=== PATIENT | female | born 1945 | race Caucasian/White ===

== ENCOUNTER → 2023-06-30 16:17 | Outpatient (REF) | payer OTHER, SELFPAY | LOC: PAVMRI 16:17 | PROVIDERS: ATTENDING PHYSICIAN Psychiatry & Neurology Behavioral Neurology & Neuropsychiatry; PRIMARYCARE PHYSICIAN Internal Medicine | DX: G30.9 Alzheimer's disease, unspecified (principal) | CPT/HCPCS: 70551 ==

== ENCOUNTER 2024-06-12 14:02 | Inpatient (IN) | payer OTHER, SELFPAY ==
[2024-06-12] VITALS (9 sets, daily range): BP systolic 142–244; BP diastolic 55–78; BMI 28.7; BMI 28.9
--- NOTE | 2024-06-12 10:55 | EDRN ---
Ja BONILLA in to see pt.
[2024-06-12 11:08] LABS: % Basophils 0.4 % (0-2); % Eosinophils 1.3 % (0-6); % Immature Granulocytes 0.3 % (0-0.5); % Lymphocytes 5.6 % (20.5-51.1); % Monocytes 7.3 % (1.7-9.3); % Neutrophils 85.1 % (42.2-75.2); Absolute Eosinophils 0.1 10^3/uL (0-0.7); Absolute Lymphocytes 0.4 10^3/uL (1.2-3.4); Absolute Monocytes 0.6 10^3/uL (0.1-0.6); Absolute Neutrophils 6.4 10^3/uL (1.4-6.5); Hemoglobin 11.6 g/dL (12.0-16.0); Mean Corp Hgb Conc. 33.1 g/dL (33.0-37.0); Mean Corpuscular Hgb 32.1 pg (27.0-31.0); Mean Platelet Volume 9.6 fL (7.4-10.4); Nucleated Red Blood Cells % 0 %; Platelet Count 235 10^3/uL (130-400); Red Blood Cell Count 3.61 10^6/uL (4.20-5.40); White Blood Cell Count 7.5 10^3/uL (4.8-10.8)
--- NOTE | 2024-06-12 11:25 | EDRN ---
Pharmacist caled to send losartan 50 mg.
[2024-06-12 11:31] LABS: ALT (SGPT) 12 U/L (0-35); AST (SGOT) 21 U/L (14-36); Albumin 3.8 g/dl (3.5-5.0); Alkaline Phosphatase 109 U/L (38-126); Blood Urea Nitrogen 18 mg/dl (7-17); Calcium 9.2 mg/dl (8.4-10.2); Carbon Dioxide 26 mmol/L (22-30); Chloride 106 mmol/L (98-107); Glucose 118 mg/dl (70-99); Potassium 4.6 mmol/L (3.5-5.1); Sodium 137 mmol/L (135-145); Total Bilirubin 0.7 mg/dl (0.2-1.3); eGFR > 60.00
[2024-06-12 11:34] LABS: NT-proBNP 3100 pg/ml; Troponin I < 0.012 ng/ml
[2024-06-12] MEDS: COZAAR 50 MG PO (11:36)
[2024-06-12 11:55] LABS: COVID-19 Antigen Negative (Negative)
--- NOTE | 2024-06-12 12:33 | ED.GENMED ---
History of Present Illness
General
Chief Complaint: Breathing Problem
Source: patient
Exam Limitations: none
Time Seen by Provider: 06/12/24 10:29
Nursing documentation reviewed up to this point in time: agreed with
History of Present Illness
History of Present Illness:
pt is a 79 y/o F
h/o afib on eliquis, htn, hld
ex smoker
has had sob the past 3-4 days yojana when trying to lay down, worse at night, cannot lay flat
and feels weight gain (unknown pounds) and bloating
no edema in legs
she has had a cough
apparently had a cold but it seemed to get better and then worse more recently again
no known fever
has some mild pleuritic chest pain today too
no hemoptysis
has been compliant with eliquis, no missed doses except this am
didn't take bp meds this morning
Past History
Past History
ED Past Medical History: GERD (Merrill's)
ED Past Surgical History: Negative Appendectomy, Bowel resection, Cardiac or Cholecystectomy
Social History
Tobacco: Non-smoker
Alcohol: Occasional
Drug: None
Personal:
Living: with family
Employment: Retired
Family History
Family History: Other (Noncontributory)
Review of Systems
Review of Systems
Allergies reviewed?: Yes
All Other Systems: Not applicable
Phy Exam
Physical Exam
Physical Exam:
GENERAL: Alert , in no apparent distress mildly tachypneic
EYE: pupils equal and reactive
NECK: Supple
ENT: o/p clr, mmm.
CARDIAC: Regular rate and rhythm .
LUNGS: Diminished, no audible wheezes, maybe possible fine crackles, no cough
ABDOMEN: Soft, without focal tenderness, no r/g, no cvat, normal bowel sounds
NEUROLOGICAL: Alert and oriented, no focal neuro deficits
SKIN: Warm and dry, skin intact.
MUSCULOSKELETAL: No edema, well perfused. neg karyna's sign
PSYCH: Normal and appropriate interaction.
Scores
Heart Failure Risk
Heart Failure Risk Score: Yes
History of Stroke or TIA: No
History of intubation for respiratory distress: No
Heart rate on ED arrival >/= 110: No
SaO2 <90% on arrival on room air: No
HR >/=110 during 3min walk test (or too ill to perform test): No
ECG has acute ischemic changes: No
Urea >/=12mmol/L (BUN 33.6mg/dL): No
Serum CO2>/=35mmol/L: No
Troponin I or T elevated to RI Level (0.4mg/dL): No
NT-proBNP >/=5,000ng/L (5,000pg/ml): No
HF Risk Score: 0
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
Course
Orders/Labs/Results
Orders:
Orders
06/12/24 09:57
EKG [Electrocardiogram (*1)] Urgent
Reason for Study: Shortness of Breath
EKG- Treatment ONCE
06/12/24 10:40
Cardiac Monitoring- Treatment ONCE
IV Insert/Care/Rem.- Treatment PRN
06/12/24 10:57
Complete Blood Count/With Diff Urgent
Comprehensive Metabolic Panel Urgent
NT-proBNP Urgent
Troponin I Urgent
06/12/24 11:09
CR Chest - 2 Views Urgent
Comment:
Reason For Exam: cough, sob
06/12/24 11:20
COVID-19 Antigen Urgent
Source: Nasal Swab
Influenza A+B Rapid Molecular Urgent
AYO Source: Nasal Swab
Specimen Description:
06/12/24 11:26
Losartan [Cozaar] 50 mg PO NOW STA
06/12/24 12:05
Furosemide [Lasix] 40 mg IV NOW STA
06/12/24 12:12
Furosemide [Lasix] 20 mg IV ONCE ONE
06/12/24 12:13
CefTRIAXone [Rocephin] 2,000 mg IV NOW STA
Doxycycline [Vibramycin] 100 mg PO NOW STA
Abnormal Lab Results
06/12/24
10:57
RBC 3.61 L 10^6/uL
(4.20-5.40)
Hgb 11.6 L g/dL
(12.0-16.0)
Hct 35.0 L %
(37.0-47.0)
MCH 32.1 H pg
(27.0-31.0)
Absolute Lymphs (auto) 0.4 L 10^3/uL
(1.2-3.4)
Neutrophils % 85.1 H %
(42.2-75.2)
Lymphocytes % 5.6 L %
(20.5-51.1)
BUN 18 H mg/dl
(7-17)
Glucose 118 H mg/dl
(70-99)
Total Protein 6.0 L g/dl
(6.3-8.2)
06/12/24 10:57
06/12/24 10:57
Vital Signs
Initial and Last Documented VS:
Initial Vital Signs
Temp Pulse Resp Pulse Ox
36.7 C 63 18 93
06/12/24 09:56 06/12/24 09:56 06/12/24 09:56 06/12/24 09:56
Last Documented Vital Signs
Temp Pulse Resp BP Pulse Ox
36.7 C 65 21 176/68 92
06/12/24 09:56 06/12/24 12:07 06/12/24 12:07 06/12/24 12:07 06/12/24 11:37
MDM/Problems Addressed
Differential Diagnosis Includes:
CHF, pulmonary edema, pneumonia, COVID, flu, pleural effusion
MDM/Problems Addressed:
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
Here with several days of inability to lay flat due to shortness of breath, mild cough, low-grade temperature here of 99.1,
Mild chest discomfort with coughing and deep breathing. No missing doses of her Eliquis except this morning's. She has never had a PE. On exam the patient's pulse ox is 92% on room air and she looked a little tachypneic initially, she was mildly
anxious and hypertensive when I saw her but her initial blood pressure was much better and her blood pressure came down to 170/770. Patient's sounded diminished throughout and maybe had some fine crackles but no obvious wheezing. She has no
carried history of COPD. Presume this could be heart failure versus pneumonia given her recent illness/cough. Her chest x-ray was independently reviewed by me, I do note that she has got cardiomegaly which looks worse than previous but it does not
look like a significant pulmonary edema however her BNP is 3000 and we do not have an old one. Her troponin was negative and her EKG is nonischemic. The radiologist suspects she has pneumonia. Will give her Doxy and Rocephin given her flecainide
use. Admit to the hospital, 1 dose of Lasix as well.
*Critical Care Note
Total Time (30-74mins, 75-104mins- exclusive of procedures): Not Applicable
ED Attending Note
-
Portions of this chart may have been created with voice recognition software.� Occasional wrong word or��sound alike� substitutions may have occurred due to the inherent limitations of voice recognition software.
Discharge Plan
Departure
Patient Disposition: Admit
Date of Disposition: 06/12/24
Time of Disposition: 12:31
Admit to: Telemetry
Presentation/result/management discussed w/ accepting MD/DO: Hospitalist
Condition: Fair
Covid-19: Negative COVID-19
Discharge Problem:
Pneumonia, Cardiomegaly
Prescriptions:
No Action
escitalopram oxalate 20 MG tablet
20 mg PO DAILY
flecainide 50 mg Tablet
50 mg PO Q12H
losartan 50 mg Tablet
50 mg PO DAILY
sennosides [senna] 8.6 mg Tablet
8.6 mg PO HSPRN PRN (Reason: CONSTIPATION)
omeprazole 40 mg Capsule,Delayed Release(Dr/Ec)
40 mg PO DAILY
metoprolol succinate [Toprol XL] 25 mg Tablet Extended Release 24 Hr
25 mg PO DAILY
Eliquis 5 mg Tablet
5 mg PO BID
acetaminophen [Acetaminophen Extra Strength] 500 mg tablet
1,000 mg PO Q6HPRN PRN (Reason: MILD PAIN)
Referrals:
Khanh Ogden MD [Family Provider] -
Interventions
Interventions:
*Risk Screen - Suicide Last Done: 06/12/24 11:00
*General Assessment Last Done: 06/12/24 11:00
*Neglect/Abuse Screening Last Done: 06/12/24 11:00
*ED- Fall Risk Assessment Last Done: 06/12/24 11:00
*ED COVID-19 Vaccine History Last Done: 06/12/24 11:00
ED- Cardiac Assessment Last Done: 06/12/24 11:00
ED- Pulmonary Assessment Last Done: 06/12/24 11:00
Discharge Date and Time
Print Language: ARMENIAN
--- NOTE | 2024-06-12 12:54 | HPS.HSE ---
Addendum entered and electronically signed by Remington Shi MD 06/12/24 20:45:
I saw and examined the patient.
The STATE DIRECTOR or PA's note was reviewed and I agree with the note.
Comment:
79F afib Eliquis HTN HLD former smoker p/w progressive dyspnea orthopnea. Daughter notes intermittent progressive coughing with meals for the past month. CXR concerning for pna. Elevated BNP w/ hx progressive orthopnea concerning for heart
failure. BP elevated systolic 200s concerning for hypertensive urgency. Patient symptomatically improved with Lasix and continuation home Losartan. Admitted for further evaluation/treatment PNA and new onset heart failure.
Physical Exam
General: no acute distress appears comfortable at this time following lasix
HEENT: NormoCephalic, Moist mucous membranes and Atraumatic
Respiratory: Clear
Cardiac: S1/S2 and Regular Rhythm; No Murmur or Rub
GI: Soft, Non Tender, Non Distended and Normal Bowel Sounds; No Organomegaly
Musculoskeletal: No Clubbing, No Cyanosis and No Edema
Skin: No Rash
Neuro: AO x 3 conversant coherent
Psych: Calm
Pneumonia
CHF new onset
Hypertensive Urgency
Paroxysmal atrial fibrillation
Cont empiric ceftriaxone Doxycycline
Lasix diuresis
blood pressure control
Cont home Eliquis Fleicanide Metoprolol
Cardio eval
Follow up ECHO
ST/PT/OT eval
Original Note:
Family Physician
-
Family Physician: Khanh Ogden
Chief Complaint
-
sob
History of Present Illness
79 y/o F h/o afib on eliquis, htn, hld,ex smoker has had sob the past 3-4 days yojana when trying to lay down, worse at night, cannot lay flat. she had pleuritic chest pain since yesterday. she was complaining of right sided jaw and ear pain. denied
fever, chills. complained of CAN. denied abdominal pain,n,v,d. denied dysuria or hematuria. her legs are little swollen as per daughter. she had gained weights but not sure how much.
Chest x-ray with pneumonia, elevated BNP. Received Lasix, ceftriaxone and Doxy in ER. Admitting for further management
Medical History
Past Medical History
Past Medical History: Reports Other
Additional Past Medical History:
kidney stone
HTN
congenital malformation of intestinal fixation
GERD
Merrill esophagus
atrial fib
Past Surgical History: Reports Other
Additional Past Surgical History:
cataract surgery
kidney stone extraction
fallopian tube/oophorectomy
cervical fusion
Social History
Tobacco: Former Smoker
Alcohol: Daily
Drug: None
Living: With Family
Family History
Family History: Not pertinent
Allergies / Home Medications
Allergies reflects when Allergies were last updated in [employer].
Home Medications with original date entered in [employer]
Allergy/Medication List:
Allergies
Allergy/AdvReac Type Severity Reaction Status Date / Time
Nickel AdvReac ear Uncoded 09/25/22 08:19
irritation
Home Medications
escitalopram oxalate 20 mg tablet 20 mg PO DAILY 12/12/16
flecainide 50 mg tablet 50 mg PO Q12H 09/21/22
acetaminophen 500 mg tablet (Acetaminophen Extra Strength) 1,000 mg PO Q6HPRN PRN MILD PAIN 06/12/24
apixaban 5 mg tablet (Eliquis) 5 mg PO BID 06/12/24
losartan 50 mg tablet 50 mg PO DAILY 06/12/24
metoprolol succinate 25 mg tablet,extended release 24 hr (Toprol XL) 25 mg PO DAILY 06/12/24
omeprazole 40 mg capsule,delayed release 40 mg PO DAILY 06/12/24
sennosides 8.6 mg tablet (senna) 8.6 mg PO HSPRN PRN CONSTIPATION 06/12/24
Review of Systems
-
Constitutional: Reports Weight Gain
EENT: Reports No Symptoms
Respiratory: Reports Cough and Trouble Breathing
Cardiac: Reports No Symptoms
Abdomen/GI: Reports No Symptoms
: Reports No Symptoms
Musculoskeletal: Reports No Symptoms
Skin: Reports No Symptoms
Neurological: Reports Headache
Endocrine: Reports No Symptoms
Hematologic/Lymphatic: Reports No Symptoms
Psych: Reports No Symptoms
Physical Exam
Vital Signs
Vital Signs
Temp Pulse Resp BP Pulse Ox
98.1 F 65 21 176/68 92
06/12/24 09:56 06/12/24 12:07 06/12/24 12:07 06/12/24 12:07 06/12/24 11:37
Physical Exam
General: Well Developed, Well Nourished and No Apparent Distress
HEENT: NormoCephalic, Moist mucous membranes and Atraumatic
Respiratory: Clear
Cardiac: S1/S2 and Regular Rhythm; No Murmur or Rub
GI: Soft, Non Tender, Non Distended and Normal Bowel Sounds; No Organomegaly
Rectal: Deferred by Provider
Musculoskeletal: No Clubbing, No Cyanosis and No Edema
Skin: No Rash
Neuro: AO x 3 and Nonfocal/grossly intact
Psych: Calm
Laboratory Results
-
06/12/24 10:57
06/12/24 10:57
Laboratory Results
Total Bilirubin 0.7 mg/dl (0.2-1.3) 06/12/24 10:57
Total Bilirubin Cancelled 06/12/24 10:57
AST 21 U/L (14-36) 06/12/24 10:57
AST Cancelled 06/12/24 10:57
ALT 12 U/L (0-35) 06/12/24 10:57
ALT Cancelled 06/12/24 10:57
Alkaline Phosphatase 109 U/L (38-126) 06/12/24 10:57
Alkaline Phosphatase Cancelled 06/12/24 10:57
Troponin I < 0.012 ng/ml 06/12/24 10:57
Data Reviewed
-
Diagnostic Radiology: Report Reviewed by me
Lab Data: Labs Reviewed by me
Impression/Plan
-
#dyspnea multifactorial
-COVID-negative, flu negative
-Chest x-ray with impression of New findings suggesting right middle lobe and right lower lobe pneumonia. Mild. Clinical and laboratory correlation recommended.Tiny bilateral pleural effusions.Mild cardiomegaly. New
-Consider supplemental oxygen to keep sat greater than 92, wean as tolerated
#pneumonia
-Ceftriaxone and Doxy continued
-Tylenol as needed for fever and headache
#CHF new onset
-BNP 3100
-Lasix continued
-Strict ZEE
-Daily weight
-Fluid restriction
- Echo
-Cardiology consult
# Hypertension emergency
-Blood pressure was elevated on arrival
-Received a dose of losartan in the ER
-Blood pressure improving
-Losartan continued
-hydralzine iv added
# Anemia of chronic disease
-Hemoglobin stable at 11.6
-No active bleed
-Continue to monitor
#Cervical spondylosis with myelopathy
-hxt of discectomy
#Paroxysmal atrial fibrillation
-Eliquis continued
-Flecainide continued
-Metoprolol continued
# Depression/anxiety
-Escitalopram continued
# GERD
-PPI continued
# DVT prophylaxis
-Eliquis
# CODE STATUS
-Full code
[2024-06-12] MEDS: ROCEPHIN 2000 MG IV (13:00)
[2024-06-12] MEDS: LASIX 20 MG IV (13:00)
[2024-06-12] MEDS: VIBRAMYCIN 100 MG PO ×2 (13:00→20:08)
--- NOTE | 2024-06-12 13:00 | EDRN ---
Kee Padilla SALES OPERATIONS LEAD in room w/pt at this time. Purewyck placed as pt has difficulty getting up and out of bed to BR, also pt is to get lasix now.
[2024-06-12] MEDS: TYLENOL 650 MG PO (13:24)
--- NOTE | 2024-06-12 16:09 | CON.CAR ---
Addendum entered and electronically signed by Berkley Montemayor DO 06/12/24 18:13:
I saw and examined the patient.
The Outside Industrial Sales Representative's note was reviewed and I agree with the note.
Comment: Patient was seen and examined with daughter, Radha at bedside in room 418-2. Tiffany is a 79-year-old female with history of atrial fibrillation on Eliquis, hypertension, hyperlipidemia, former smoker, GERD, Merrill's esophagus, presents
with 3 to 4-day history of shortness of breath when lying flat, worse at night. Also with lower extremity edema. Also complains of pleuritic chest pain x 1 day, also c/o right-sided jaw and ear pain. Reports having shortness of breath like this
once before but does not recall when it was or if she was on a diuretic. She reports she had atrial fibrillation earlier this year and had a cardioversion in March 2024. She is scheduled for an ablation in July 2024 at [facility]. Patient's
primary rec therapist is Klever Merrill at [facility].
GEN: NAD, AAOx3, forgetful at times. RA
HEENT: supple, anicteric, mmm
LUNGS: CTA, no wheezes/rales
CV: Reg, S1/S2, 2/6 SM
ABD: soft, BS+, NT/ND
EXT: No edema.
Plan:
Acute heart failure, likely preserved ejection fraction, new daignosis
-Not on routine diuretics as an outpatient
-proBNP 3100
-Symptoms of orthopnea and shortness of breath have improved overnight with IV Lasix. Will continue IV Lasix and likely transition to oral Lasix at time of discharge
-cont outpt Losartan and Metoprolol succinate
-echo pending
-Consider adding additional GDMT, await echo result
-I/O and daily weights
-Troponin negative x 1
History of paroxysmal atrial fibrillation with plan for ablation at [facility] in July
-Currently in sinus rhythm with a EKG normal sinus rhythm and an otherwise normal EKG without ischemic changes
-Continue flecainide 50 mg every 12 in addition to metoprolol succinate 25 mg daily
-Monitor on telemetry
-Continue Eliquis anticoagulation
Records being requested from [facility]
Will follow with you
Original Note:
Consultation
Consultation Request
Date/Time Consultation Requested: 06/12/2024, 1459
Date/Time Consultation Performed: 06/12/2024, 1610
Requesting Provider: RHINA Avina
Performing Provider: RHINA Mane for Dr. Torres
Reason for Consultation: Heart failure
Medical History
-
Chief Complaint: Shortness of breath
History of Present Illness:
79-year-old female with history of atrial fibrillation on Eliquis, hypertension, hyperlipidemia, former smoker, GERD, Merrill's esophagus, presents with 3 to 4-day history of shortness of breath when lying flat, worse at night. Also with lower
extremity edema. Also complains of pleuritic chest pain x 1 day, also c/o right-sided jaw and ear pain. Reports having shortness of breath like this once before but does not recall when it was or if she was on a diuretic. She reports she had
atrial fibrillation earlier this year and had a cardioversion in March 2024. She is scheduled for an ablation in July 2024 at [facility]. Patient's primary rec therapist is Klever Merrill at [facility].
ED evaluation: proBNP 3100, troponin less than 0.012, COVID-negative, flu A and B negative
Chest x-ray right middle lobe and right lower lobe pneumonia, mild. Mild cardiomegaly, new, tiny bilateral pleural effusions.
EKG: Normal sinus rhythm, PACs
PMH:
paroxysmal atrial fibrillation, reports she has had for several years, has been on Eliquis for at least 2 years.
MV prolapse
Hypertension
Hyperlipidemia
Former smoker
GERD
Merrill's esophagus
Patient follows with Dr. Klever Merrill at [facility]
No known history of CAD, SD, CVA, TIA
Past Medical History
Past Surgical History: Other (Kidney stone extraction, cervical fusion, fallopian tube/oophorectomy, cervical fusion)
Social History
Tobacco: Former Smoker
Alcohol: Daily (2 glasses of wine daily)
Drug: None
Living: With Family
Allergies / Home Medications
Allergy/AdvReac Type Severity Reaction Status Date / Time
nickel Allergy ear Verified 06/12/24 14:58
irritation
�Medication �Instructions �Recorded �Confirmed �Type
escitalopram oxalate 20 mg tablet 20 mg PO DAILY 12/12/16 06/12/24 History
flecainide 50 mg tablet 50 mg PO Q12H 09/21/22 06/12/24 History
acetaminophen 500 mg tablet 1,000 mg PO Q6HPRN PRN MILD PAIN 06/12/24 06/12/24 History
(Acetaminophen Extra Strength)
apixaban 5 mg tablet (Eliquis) 5 mg PO BID 06/12/24 06/12/24 History
losartan 50 mg tablet 50 mg PO DAILY 06/12/24 06/12/24 History
metoprolol succinate 25 mg 25 mg PO DAILY 06/12/24 06/12/24 History
tablet,extended release 24 hr
(Toprol XL)
omeprazole 40 mg capsule,delayed 40 mg PO DAILY 06/12/24 06/12/24 History
release
sennosides 8.6 mg tablet (senna) 8.6 mg PO HSPRN PRN CONSTIPATION 06/12/24 06/12/24 History
Review of Systems
-
History Source: Patient
Constitutional: No Symptoms
Physical Exam
Vital Signs
Temp Pulse Resp BP Pulse Ox
98.1 F 68 20 171/72 93
06/12/24 09:56 06/12/24 14:34 06/12/24 14:38 06/12/24 14:34 06/12/24 14:38
Lab Results
06/12/24 10:57
06/12/24 10:57
Troponin I < 0.012 ng/ml 06/12/24 10:57
Veg-S-Mqjeyemmklt Pept 3100 pg/ml 06/12/24 10:57
GEN: No distress, awake, Ox3
HEENT: supple, anicteric, mmm
LUNGS: CTA, no wheezes/rales
CV: Reg, S1/S2, 1/6 syst LSB, and apex
ABD: soft, BS+, NT/ND
EXT: No edema
NEURO: Gross non-focal
SKIN: No rash
Impression / Plan
-
PCP: Khanh Perez MD
Primary rec therapist: Dr. Klever Merrill at [facility]
Impression:
Acute heart failure
Paroxysmal atrial fibrillation, on Eliquis
Hypertension
Hyperlipidemia
Former smoker
GERD
Cardiovascular testing:
EKG 06/12/2024: Normal sinus rhythm with PACs
Echo 06/12/2024 pending
Will obtain results from her primary rec therapist
Plan:
Acute heart failure with BNP 3100, new diagnosis
-Agree diuresis with IV Lasix
-cont outpt Losartan and Metoprolol succinate
-echo pending
-Consider adding additional GDMT, await echo result
-I/O and daily weights
-Troponin negative x 1
History of atrial fibrillation
-On flecainide 50 mg twice daily, Toprol 25 mg daily, and apixaban 5 mg twice daily
-EKG today: Normal sinus rhythm, 64 bpm, QRS 104 ms, QTc 466 ms
-Patient reportedly had a cardioversion in March 2024 and has ablation scheduled for July 2024 at [facility]
-If found to have LV dysfunction may need to switch antiarrhythmic from a 1C agent.
Pneumonia:
-Antibiotics per primary team
Data Reviewed
-
EKG: Tracing Personally Visualized and interpreted
Labs: Labs Reviewed by me
[2024-06-12] MEDS: TAMBOCOR 50 MG PO (18:03)
[2024-06-12] MEDS: ELIQUIS 5 MG PO (20:08)
[2024-06-12] MEDS: MUCINEX 600 MG PO (20:08)
[2024-06-13] VITALS (8 sets, daily range): BP systolic 131–170; BP diastolic 74–101; PULSE 116–117; O2SAT 96; BMI 28.3
--- NOTE | 2024-06-13 03:44 | PTCARENOTE ---
Pt denied pain and resp distress. No s/s of distress assessed. Will continue to monitor.
[2024-06-13] MEDS: TAMBOCOR 50 MG PO (05:18)
[2024-06-13] MEDS: APRESOLINE 5 MG IV (05:44)
--- NOTE | 2024-06-13 07:29 | W.PN.HOSP.TC ---
Today's Communication/Plan
-
ST/PT/OT
cont diuresis as per Cardio
GI eval
blood pressure control
aspiration precautions
cont abx
Assessment / Plan
Assessment / Plan
Physical Exam
General: no acute distress appears comfortable at this time
HEENT: NormoCephalic, Moist mucous membranes and Atraumatic
Respiratory: Clear stable respiratory status on room air
Cardiac: S1/S2 and Regular Rhythm; No Murmur or Rub
GI: Soft, Non Tender, Non Distended and Normal Bowel Sounds; No Organomegaly
Musculoskeletal: No Clubbing, No Cyanosis and No Edema
Skin: No Rash
Neuro: AO x 3 conversant coherent
Psych: Calm
79F afib Eliquis HTN HLD former smoker p/w progressive dyspnea orthopnea. Daughter notes intermittent progressive coughing with meals for the past month. CXR concerning for pna. Elevated BNP w/ hx progressive orthopnea concerning for heart
failure. BP elevated systolic 200s concerning for hypertensive urgency. Patient symptomatically improved with Lasix and continuation home Losartan. Admitted for further evaluation/treatment PNA and new onset heart failure
#dyspnea multifactorial
-COVID-negative, flu negative
-Chest x-ray suggestive right middle lobe and right lower lobe pneumonia. Mild cardiomegaly
#pneumonia
-Ceftriaxone and Doxy continued
-Tylenol as needed for fever and headache
#Acute HFpEF
-BNP 3100
-Lasix continued
-daily weight I/O
- Echo appreciated EF 55-60%
-Cardiology consult appreciated cont IV lasix diuresis
# Hypertension urgency
-Blood pressure was elevated on arrival
-since improved following restart home antihypertensive
-Losartan Metoprolol continued
-hydralzine iv prn
-cont diuresis as per cardio
# Anemia of chronic disease
-H&H stable
#Cervical spondylosis with myelopathy
-hxt of discectomy
#Paroxysmal atrial fibrillation
-Eliquis Metoprolol continued
-Flecainide discontinued as per cardio, contraindicated d/t HF, started on Amiodarone
-Cardio eval appreciated planned for Cardioversion
# Depression/anxiety
-Escitalopram continued
# GERD
#Esophageal dysphagia as noted on VSE
-PPI continued
-GI eval appreciated planned for Barium esophagram
PT/OT appreciated home health
# DVT prophylaxis
-Eliquis
# CODE STATUS
-Full code
I spent a total of 50 minutes with the patient or on the floor. More than 50% of this time involved counseling and coordination of care.
Anticipated Discharge: > 48 hours
Subjective/Interval History
-
Date of Service: June 13, 2024
episode coughing vomiting with meal this morning. otherwise stable respiratory status on room air. Reports persistent dysphagia, general malaise.
Objective Data
-
Labs:
Laboratory Results
06/13/24
06:42
WBC Pending
Hgb Pending
Hct Pending
Plt Count Pending
Sodium Pending
Potassium Pending
Chloride Pending
Carbon Dioxide Pending
BUN Pending
Creatinine Pending
Glucose Pending
Calcium Pending
Vital Signs:
Vital Signs
Temp Pulse Resp BP Pulse Ox
98.4 F 113 18 197/111 91
06/13/24 03:44 06/13/24 05:44 06/13/24 03:44 06/13/24 05:44 06/13/24 03:44
I&O
06/12/24 06/13/24 06/14/24
06:59 06:59 06:59
Intake Total 620 / 620
Output Total 500 / 500
Balance 120 / 120
[2024-06-13 07:37] LABS: Hematocrit 35.8 % (37.0-47.0); Hemoglobin 12.2 g/dL (12.0-16.0); Mean Corp Hgb Conc. 34.1 g/dL (33.0-37.0); Mean Platelet Volume 9.9 fL (7.4-10.4); Platelet Count 246 10^3/uL (130-400); Red Blood Cell Count 3.81 10^6/uL (4.20-5.40); Red Cell Dist. Width 13.8 % (11.5-14.5); White Blood Cell Count 9.5 10^3/uL (4.8-10.8)
[2024-06-13] MEDS: TYLENOL 650 MG PO (08:03)
[2024-06-13] MEDS: LASIX 40 MG IV (08:03)
[2024-06-13] MEDS: VIBRAMYCIN 100 MG PO ×2 (08:04→20:20)
[2024-06-13] MEDS: MUCINEX 600 MG PO ×2 (08:04→20:20)
[2024-06-13] MEDS: TOPROL XL 25 MG PO ×3 (08:04→20:20)
[2024-06-13] MEDS: PROTONIX 40 MG PO (08:04)
[2024-06-13] MEDS: LEXAPRO 20 MG PO (08:04)
[2024-06-13] MEDS: COZAAR 50 MG PO (08:04)
[2024-06-13 08:05] LABS: Blood Urea Nitrogen 15 mg/dl (7-17); Calcium 9.8 mg/dl (8.4-10.2); Carbon Dioxide 25 mmol/L (22-30); Chloride 101 mmol/L (98-107); Estimated Creatinine Clearance 49 ml/min; Glucose 119 mg/dl (70-99); HDL Cholesterol 109 mg/dl; LDL Cholesterol, Calculated 80 mg/dl; Magnesium 1.6 mg/dl (1.6-2.3); Phosphorus 3.3 mg/dl (2.5-4.5); Potassium 3.9 mmol/L (3.5-5.1); Sodium 134 mmol/L (135-145); Total Cholesterol 205 mg/dl (50-199); Triglyceride 82 mg/dl (10-149); Very Low Density Lipoprotein 16 mg/dl (0-30); eGFR > 60.00
[2024-06-13] MEDS: ELIQUIS 5 MG PO ×2 (08:05→20:20)
[2024-06-13 08:27] LABS: TSH Reflex To Free T4 1.59 uIU/ml (0.47-4.68)
--- NOTE | 2024-06-13 09:23 | PTOTSP ---
Dysphagia Evaluation
Patient with signs concerning for pharyngoesophageal dysphagia and with acute on chronic risk factors (i.e., acute CHF exacerbation with PNA; GERD, Merrill's esophagus, hiatal hernia, hx of ACDF).
Patient with emesis after solids during this evaluation. Physician notified.
Per discussion with physician:
1. Single sips of thin liquids
2. Medications as best tolerated
3. Video swallow study to further assess oral/pharyngeal swallow and develop tx plan
4. Consider GI consult pending results of video swallow
--- NOTE | 2024-06-13 12:08 | W.PN.CARDCBS ---
Addendum entered and electronically signed by Jason Jurado MD 06/13/24 17:55:
In a.m., can consider SGLT2 antagonist and spironolactone
Addendum entered and electronically signed by Jason Jurado MD 06/13/24 16:39:
79-year-old woman with PAF scheduled for ablation, admitted here with 3 to 4 days of shortness of breath with A-fib, found to have HFpEF with proBNP of 3100. Currently on flecainide. Being treated empirically for pneumonia
PMH: Mitral valve prolapse, hypertension, paroxysmal A-fib, hyperlipidemia, former smoker, GERD/Merrill's PSH: Calculi, cervical fusion, BSO outpatient meds: Apixaban, Lexapro, flecainide 50 p.o. every 12, losartan 50 mg twice daily, metoprolol ER
25 a day, omeprazole 40 mg a day, etc.
Current meds: Apixaban, Lexapro 20 mg a day, flecainide 50 mg every 12, losartan 50 mg daily, metoprolol ER 25 mg daily, pantoprazole 40 mg a day, furosemide 40 mg IV daily, Mucinex, ceftriaxone, doxycycline
155/86, pulse 106, respiratory 20, afebrile weight is 73.5 kg if accurate down 5 kg from admission
Echo 06/12/2024: EF 55-60%, mild LVH, moderate MR, normal RV, mild TR, pulmonary artery pressure 47, normal RV, trace aortic regurgitation
White count is 9.5, hemoglobin is 12.2, BUN and creatinine are 15 and 0.9, Troponin undetectable, proBNP 3100
Impression:
Paroxysmal/persistent atrial fibrillation on flecainide, scheduled for PVI at [facility] in July
Acute/subacute HFpEF
Possible pneumonia
Hypertension
Hypercholesterolemia
Former smoker
GERD
Plan:
Continue IV Lasix possibly transition to oral in a.m.
DC flecainide, which is now contraindicated related to new onset heart failure
Agree with increase in metoprolol, ventricular response is still rapid
Discussed with patient's primary wireless operator, Dr. Merrill, we are agreed that short-term addition of amiodarone with cardioversion pending PVI is reasonable, start amiodarone in a.m.
Blood pressure is now fairly reasonably controlled
Original Note:
Today's Communication / Plan
-
Increase Toprol
Schedule for cardioversion tomorrow
Impression / Plan
-
PCP: Khanh Perez MD
Primary wireless operator: Dr. Klever Merrill at [facility]
Impression:
Acute heart failure
Paroxysmal atrial fibrillation, on Eliquis, Flecainide, toprol
Hypertension
Hyperlipidemia
Former smoker
GERD
Cardiovascular testing:
EKG 06/12/2024: Normal sinus rhythm with PACs
Echo 06/12/2024: normal LV size, EF 55 to 60%, stage III diastolic dysfunction, moderate MR, mild TR, PAP 47 mmHg
Plan:
1.Acute heart failure with BNP 3100, new diagnosis
-Agree diuresis with IV Lasix, weight down 3 pounds overnight
-cont outpt Losartan and Metoprolol succinate
-echo 06/12/2024, EF 55-60%
-Consider adding additional GDMT
-I/O and daily weights
-Troponin negative x 1
2. History of atrial fibrillation
-On flecainide 50 mg twice daily, Toprol 25 mg daily, and apixaban 5 mg twice daily
-Was in normal sinus rhythm on presentation, went into atrial fibrillation with RVR overnight around 3 AM. Patient currently denies palpitations, lightheadedness
-Repeat twelve-lead EKG today
-Will increase Toprol to 50 mg daily with extra 25 mg now.
-Has been on uninterrupted Eliquis.
-Will schedule for cardioversion tomorrow
-Patient is scheduled for ablation in July 2024 at [facility] through her primary wireless operator. Still attempting to obtain records.
-Patient reportedly had a cardioversion in March 2024 and has ablation scheduled for July 2024 at [facility]
-Consider switching antiarrhythmic from a 1C agent given heart failure preserved EF. Will need to review this with primary wireless operator.
Pneumonia:
-Antibiotics per primary team
Progress Note - Automation Consultant
Subjective
Date of Service: June 13, 2024
Went into A-fib overnight, HRs to 120s
-denies palps, LH, SOB, CP
Objective
Labs:
06/13/24 06:42
06/13/24 06:42
Labs
Hgb 12.2 g/dL (12.0-16.0) 06/13/24 06:42
Hct 35.8 % (37.0-47.0) L 06/13/24 06:42
Plt Count 246 10^3/uL (130-400) 06/13/24 06:42
Sodium 134 mmol/L (135-145) L 06/13/24 06:42
Potassium 3.9 mmol/L (3.5-5.1) 06/13/24 06:42
BUN 15 mg/dl (7-17) 06/13/24 06:42
Creatinine 0.9 mg/dL (0.6-1.0) 06/13/24 06:42
Glucose 119 mg/dl (70-99) H 06/13/24 06:42
Troponins
06/12/24
10:57
Troponin I < 0.012
Vital Signs and I&O:
Vital Signs
Temp Pulse Resp BP Pulse Ox
97.9 F 106 20 155/86 94
06/13/24 10:51 06/13/24 10:51 06/13/24 10:51 06/13/24 10:51 06/13/24 10:51
Vital Signs
Temp Pulse Resp BP Pulse Ox
97.9 F 106 20 155/86 94
06/13/24 10:51 06/13/24 10:51 06/13/24 10:51 06/13/24 10:51 06/13/24 10:51
Intake & Output
06/11/24 06/12/24 06/13/24 06/14/24
06:59 06:59 06:59 06:59
Intake Total 620 / 620
Output Total 500 / 500
Balance 120 / 120
Physical Exam
Physical Exam
GEN: No distress, awake, Ox3
HEENT: supple, anicteric, mmm
LUNGS: CTA, no wheezes/rales
CV: tachy, irreg, irreg no murmur
ABD: soft, BS+, NT/ND
EXT: No edema
NEURO: Gross non-focal
SKIN: No rash
[2024-06-13] MEDS: STERILE WATER FOR INJECTION 10 ML IV (13:03)
[2024-06-13] MEDS: ROCEPHIN 1000 MG IV (13:05)
--- NOTE | 2024-06-13 14:42 | CON.GI ---
Addendum entered and electronically signed by Klever Joyce MD 06/13/24 17:33:
Patient seen and examined, agree with nurse practitioner note. Patient is a 79-year-old female with complex past medical history as noted including A-fib on Eliquis, Laboy's, admitted with cough and shortness of breath, found to have new acute
heart failure with BNP of 3100 and possible pneumonia. She underwent modified barium swallow today with concern for esophageal retention and retrograde flow. She states that since her cervical spine surgery she has been having some trouble with
dysphagia, mostly initiating a swallow. 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 She does have some regurgitation at times, though does know which dietary changes
to help with her symptoms. She denies any fever, chills, melena. On exam she has no abdominal tenderness.
1. Pneumonia: Possibly related to aspiration, though her symptoms seem to be more from proximal esophagus after her C-spine surgery. At this point will await barium esophagram to further define esophageal anatomy. Will hold on endoscopy for now
pending esophagram results, and discussed continued dietary modifications.
Original Note:
Consultation
-
Date/Time Consultation Requested: 06/13/24 1430
Date/Time Consultation Performed: 06/13/24 1445
Requesting Provider: Jony Shi MD
Performing Provider: RHINA Cesar, Yomi Joyce MD
Reason for Consultation: concern for aspiration
Medical History
Chief Complaint / HPI
Chief Complaint: dysphagia with PNA
History of Present Illness:
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
hypothyroidism, cervical surgery x 2 summer 2023, hx ulcerative colitis on prior colonoscopy bx with short period of mesalamine use, former tobacco use with admission with noted cough for last few months with eating and noted with shortness of
breath. On admission concern for new acute heart failure with BNP 3100 with new diagnosis.There was also concern for PNA. She completed VSE today with concern for esophageal dysphagia with retrograde flow and retention in esophagus with esophageal
sweep which did not clear with wash . Asked to see for concern for aspiration from esophageal issue.
In further review with patient she had 2 cervical surgeries last summer. After completed she began with difficulty swallowing with liquid and solids. She had feeling of food sticking in upper esophagus then regurgitation and some time vomiting
of stomach contents. She has chronic GERD with hx laboy's on Omeprazole daily. She also complaints of some pinpoint epigastric pain over lower sternum that is reproducible with palpation. She denies issues with odynophagia, diarrhea,
constipation or rectal bleeding. Last EGD on records with Dr. Felix, - mucosa suggest of laboy's, polyps in stomach, , Erythema c/w gastritis, bx not reviewed. repeat 3 year. Pt unsure if repeated since that time.
Past Medical History
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
colonoscopy in past, laboy's, tortuous colon with hx , hx ulcerative colitis on prior colon biopsy with prior mesalamine use , enlarged gastric fold with follow up EUS no mass seen )
Past Surgical History: Cardiac (cardioversion), Orthopedic (cervical fusion ) and Other (cataract surgery with lens placed, fallopian tube with oopherectomy)
Social History
Tobacco: Former Smoker
Alcohol: Occasional
Drug: None
Living: Alone
Employment: Retired
Family History
Family History: Other (no family hx colon CA or polyps, mother with empysema)
Allergies / Home Medications
Allergy/AdvReac Type Severity Reaction Status Date / Time
nickel Allergy ear Verified 06/12/24 14:58
irritation
�Medication �Instructions �Recorded
escitalopram oxalate 20 mg tablet 20 mg PO DAILY Depression 12/12/16
flecainide 50 mg tablet 50 mg PO Q12H Arrhythmia 09/21/22
acetaminophen 500 mg tablet 1,000 mg PO Q6HPRN PRN MILD PAIN 06/12/24
(Acetaminophen Extra Strength)
apixaban 5 mg tablet (Eliquis) 5 mg PO BID Blood Clot 06/12/24
Prevention/Tx
losartan 50 mg tablet 50 mg PO DAILY Blood Pressure 06/12/24
metoprolol succinate 25 mg 25 mg PO DAILY Blood Pressure 06/12/24
tablet,extended release 24 hr
(Toprol XL)
omeprazole 40 mg capsule,delayed 40 mg PO DAILY Gastrointestinal 06/12/24
release Issue
sennosides 8.6 mg tablet (senna) 8.6 mg PO HSPRN PRN CONSTIPATION 06/12/24
Review of Systems
-
History Source: Patient
Constitutional: Reports No Symptoms
EENT: Reports Other (dysphagia )
Respiratory: Reports Cough and Trouble Breathing (with chest tightness on admission)
Cardiac: Reports Chest Pain (on admission)
Abdomen/GI: Reports Abdominal Pain (epigastric pain ), Nausea and Vomiting
: Reports No Symptoms
Musculoskeletal: Reports Joint Pain and Other (neck/shoulder pain)
Neurological: Reports Dizzy and Weakness
Endocrine: Reports No Symptoms
Hematologic/Lymphatic: Reports No Symptoms
Vital Signs
Temp Pulse Resp BP Pulse Ox
97.9 F 106 20 155/86 94
06/13/24 10:51 06/13/24 10:51 06/13/24 10:51 06/13/24 10:51 06/13/24 10:51
Physical Exam
Exam
General: Well Developed, Well Nourished and No Apparent Distress
HEENT: Normocephalic and Anicteric
Respiratory: Clear
Cardiac: Regular Rhythm
GI: Soft, Non Tender and Non Distended
Musculoskeletal: No Clubbing and No Cyanosis
Skin: Warm and Dry
Neuro: Awake, Alert, AO x 3 and Other (forgetful at times to some history )
Psych: Calm
Results
WBC 9.5 10^3/uL (4.8-10.8) 06/13/24 06:42
Hgb 12.2 g/dL (12.0-16.0) 06/13/24 06:42
Hct 35.8 % (37.0-47.0) L 06/13/24 06:42
MCV 94.0 fL (81.0-99.0) 06/13/24 06:42
Plt Count 246 10^3/uL (130-400) 06/13/24 06:42
Absolute Neuts (auto) 6.4 10^3/uL (1.4-6.5) 06/12/24 10:57
Sodium 134 mmol/L (135-145) L 06/13/24 06:42
Potassium 3.9 mmol/L (3.5-5.1) 06/13/24 06:42
Chloride 101 mmol/L (98-107) 06/13/24 06:42
Carbon Dioxide 25 mmol/L (22-30) 06/13/24 06:42
BUN 15 mg/dl (7-17) 06/13/24 06:42
Creatinine 0.9 mg/dL (0.6-1.0) 06/13/24 06:42
Calcium 9.8 mg/dl (8.4-10.2) 06/13/24 06:42
Total Bilirubin 0.7 mg/dl (0.2-1.3) 06/12/24 10:57
Total Bilirubin Cancelled 06/12/24 10:57
AST 21 U/L (14-36) 06/12/24 10:57
AST Cancelled 06/12/24 10:57
ALT 12 U/L (0-35) 06/12/24 10:57
ALT Cancelled 06/12/24 10:57
Alkaline Phosphatase 109 U/L (38-126) 06/12/24 10:57
Alkaline Phosphatase Cancelled 06/12/24 10:57
Diagnostic Image Results:
06/12/24 CXR -
New findings suggesting right middle lobe and right lower lobe pneumonia. Mild. Clinical and laboratory correlation recommended.
Tiny bilateral pleural effusions.
Mild cardiomegaly. New
Prior GI Procedures:
�������colonoscopy was attempted in 2012. Procedure was aborted. She then had a virtual colonoscopy in April 2012 which was negative for clinically significant polyps. She had a Cologuard in May 2015 that was negative Repeat Virtual colonoscopy
2018 with no polyps
�������EGD June 2018 normal duodenal bulb, erythema in antrum, few gastric polyps, irreg z line, enlarged gastric fold suspect lipoma bx neg H pylori , stomach cardia HP polyp, stomach fundic gland polyp neg celiac.
�������08/[address] Arita-no lesion seen on exam, prior pathology HP polyp no further eval needed
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
descending colon.
�������05/15/2019 EGD- Infantolino- mucosa suggest of laboy's, polyps in stomach, , Erythema c/w gastritis, bx not reviewed. repeat 3 year
�������05/15/2019- colonoscopy- continuous congestions and erythema no bleeding in rectum, c/w colitis benign polyp mid ascending colon, polypectomy, 2 clips placed otherwise normal repeat 5 years ( bx- per pt records noted with ulcerative colitis).
Assessment / Plan
-
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
neg EUS, HTN, hypothyroidism, cervical surgery x 2 summer 2023, hx ulcerative colitis on prior colonoscopy bx with short period of mesalamine use, former tobacco use with admission with noted cough for last few months with eating and noted
with shortness of breath. On admission concern for new acute heart failure with BNP 3100 with new diagnosis.There was also concern for PNA. She completed VSE 06/13 with concern for esophageal dysphagia with retrograde flow and retention in
esophagus with esophageal sweep which did not clear with wash . Asked to see for concern for aspiration from esophageal issue. Pt admits to issues since cervical surgery last summer. Last EGD on records with Dr. Felix, - mucosa suggest of
laboy's, polyps in stomach, , Erythema c/w gastritis, bx not reviewed. repeat 3 year. Pt unsure if repeated since that time.
-dyspnea with PNA/CHF on admission
-dysphagia with concern for esophageal component per VSE
-hx cervical surgery x 2 summer with onset of swallowing issues
-hx GERD/laboy's with chronic PPI use
-afib on Eliquis with CV 03/2024 and due ablation
other med problems:
-hx colon polyps
-prior difficulty colonoscopy with malrotation
-hx abnormal colon bx with possible UC with short course of mesalamine in past
-hx enlarged gastric fold with prior EUS
-HTN
-hypothyroidism
-former tobacco use
PLAN:
etiology of dysphagia with concern for esophageal component, ? post cervical surgery vs other
plan for esophagram in AM
cont cholesterol lowering diet for now with aspiration precautions , NPO for AM
cont PPI
will need to consider eventual EGD follow up for laboy's when improved from PNA and CHF-- last scope 2019 Dr. Gatica and due 2022
cont abx for PNA
cards following with CHF
Pt would also be due follow up colonoscopy outpatient at this time-- follow up with Dr. Gatica who is now at [facility] if wants to proceed
-
-
Thank you for consultation and allowing me to participate in the patient's care. Please call the [facility] physician during the after hours with any questions or concerns.
--- NOTE | 2024-06-13 14:53 | CM ---
CM reviewed chart, patient seen bedside, initial assessment completed. Patient resides independently in a multiple story home, reports she resides on the first floor, no steps to enter. Patient reports she has a cane and walker at home if needed,
has had [facility]N in past, [facility] in past. Patient confirms PCP Khanh Ogden, pharmacy [facility], confirms prescription coverage. CM offered VN to patient, declining at this time. Per Cardiology, plan for cardioversion tomorrow. CM will
continue to follow for all discharge planning needs.
Plan; home no needs, declining VN at this time
--- NOTE | 2024-06-13 14:59 | PTOTSP ---
Videofluoroscopic swallow study
Summary: Patient presents with overall functional oral/pharyngeal stages of swallowing. No aspiration occurred.
Concern for esophageal dysphagia noted with retrograde flow through pharyngoesophageal segment with mildly thick liquids via straw x1 and retention t/o esophagus w/ esophageal sweep that reduced but did not fully clear with liquid wash. Patient
with history of GERD, Merrill's esophagus, and hiatal hernia. Consider GI consult this admission given patient c/o solid stasis and vomiting episodes.
Recommend:
1. Regular, Thin liquids
2. Medications as best tolerated (consider crushing large pills and mixing in puree if medically cleared)
3. Oral care 3-5x daily
4. Strategies: upright to 90 degrees, alternate sips/bites, remain upright for at least 30 minutes after PO intake
5. Consider GI consult
6. No further dysphagia tx warranted. Please reconsult as appropriate.
--- NOTE | 2024-06-13 16:17 | W.PN.UPDATE ---
Update Note
Progress Note Update
Regarding atrial fibrillation:
Stopping flecainide
Start amiodarone 200 mg 3 times daily tomorrow-ordered
Cardioversion on , 06/15/2024-scheduled
N.p.o. after midnight on 06/14/2024
[2024-06-13] MEDS: ALDACTONE 12.5 MG PO (18:21)
[2024-06-14 04:26] VITALS: BP 157/98
[2024-06-14 06:00] VITALS: BMI 27.1
--- NOTE | 2024-06-14 06:54 | W.PN.HOSP.TC ---
Today's Communication/Plan
-
PT/OT
cont diuresis as per Cardio
NPO after midnight for cardioversion
blood pressure control
aspiration precautions
cont abx
Assessment / Plan
Assessment / Plan
Physical Exam
General: no acute distress appears comfortable at this time
HEENT: NormoCephalic, Moist mucous membranes and Atraumatic
Respiratory: Clear stable respiratory status on room air
Cardiac: S1/S2 and Regular Rhythm; No Murmur or Rub
GI: Soft, Non Tender, Non Distended and Normal Bowel Sounds; No Organomegaly
Musculoskeletal: No Clubbing, No Cyanosis and No Edema
Skin: No Rash
Neuro: AO x 3 conversant coherent
Psych: Calm
79F afib Eliquis HTN HLD former smoker p/w progressive dyspnea orthopnea. Daughter notes intermittent progressive coughing with meals for the past month. CXR concerning for pna. Elevated BNP w/ hx progressive orthopnea concerning for heart
failure. BP elevated systolic 200s concerning for hypertensive urgency. Patient symptomatically improved with Lasix and continuation home Losartan. Admitted for further evaluation/treatment PNA and new onset heart failure
#dyspnea multifactorial
-COVID-negative, flu negative
-Chest x-ray suggestive right middle lobe and right lower lobe pneumonia. Mild cardiomegaly
#pneumonia
-Ceftriaxone and Doxy continued
-Tylenol as needed for fever and headache
#Acute HFpEF
-BNP 3100
-Lasix continued
-daily weight I/O
- Echo appreciated EF 55-60%
-Cardiology consult appreciated cont IV lasix diuresis, singhga added
# Hypertension urgency
-Blood pressure was elevated on arrival
-since improved following restart home antihypertensive
-Losartan Metoprolol continued
-hydralzine iv prn
-cont diuresis as per cardio
# Anemia of chronic disease
-H&H stable
#Cervical spondylosis with myelopathy
-hxt of discectomy
#Paroxysmal atrial fibrillation
-Eliquis Metoprolol continued
-Flecainide discontinued as per cardio, contraindicated d/t HF, started on Amiodarone
-Cardio eval appreciated planned for Cardioversion
# Depression/anxiety
-Escitalopram continued
# GERD
#Esophageal dysphagia as noted on VSE
-PPI continued
-GI eval appreciated planned for Barium esophagram
PT/OT appreciated home health
# DVT prophylaxis
-Eliquis
# CODE STATUS
-Full code
discussed with patient and patient's daughter Radha
I spent a total of 40 minutes with the patient or on the floor. More than 50% of this time involved counseling and coordination of care.
Anticipated Discharge: 24 - 48 hours
Subjective/Interval History
-
Date of Service: June 14, 2024
No acute distress resting comfortably in bed stable respiratory status on room air.
Objective Data
-
Labs:
Laboratory Results
06/14/24
06:40
WBC Pending
Hgb Pending
Hct Pending
Plt Count Pending
Sodium Pending
Potassium Pending
Chloride Pending
Carbon Dioxide Pending
BUN Pending
Creatinine Pending
Glucose Pending
Calcium Pending
Vital Signs:
Vital Signs
Temp Pulse Resp BP Pulse Ox
98.1 F 105 16 157/98 96
06/14/24 04:26 06/14/24 04:26 06/14/24 04:26 06/14/24 04:26 06/14/24 04:26
I&O
06/12/24 06/13/24 06/14/24
06:59 06:59 06:59
Intake Total 620 / 620 720 / 720
Output Total 500 / 500
Balance 120 / 120 720 / 720
--- NOTE | 2024-06-14 07:00 | W.PN.GI.CBS2 ---
Addendum entered and electronically signed by RHINA Gilmna 06/14/24 08:57:
rviewed with nursing pt was strick NPO but ate cookie at bedside this AM. Plan for cardiac testing tomorrow can do Wednesday or outpatient reviewed with nursing staff.
Original Note:
Today's Communication / Plan
-
Please see assessment and plan for details.
Assessment / Plan
-
1. Dysphagia: With some esophageal dysphagia after her cervical spine surgeries, though there was concern for possible aspiration given her pneumonia and speech evaluation that showed some retention in the esophagus. Clinically does not have much
regurgitation or oropharyngeal dysphagia symptoms, likely more related to her cervical spine surgery. At this point will await barium esophagram for clarification, though unless significant gross abnormality would hold on endoscopy.
2. Merrill's esophagus: Without dysplasia in the past, has followed with Dr. Davey. Continue PPI.
Subjective
Subjective
Date of Service: June 14, 2024
Patient overall feeling better, though still had some shortness of breath with chest discomfort walking yesterday. No significant dysphagia overnight. No regurgitation.
Objective
Data Reviewed
Laboratory Data:
Laboratory Results
Phosphorus 3.3 mg/dl (2.5-4.5) 06/13/24 06:42
Magnesium 1.6 mg/dl (1.6-2.3) 06/13/24 06:42
Total Bilirubin 0.7 mg/dl (0.2-1.3) 06/12/24 10:57
Total Bilirubin Cancelled 06/12/24 10:57
AST 21 U/L (14-36) 06/12/24 10:57
AST Cancelled 06/12/24 10:57
ALT 12 U/L (0-35) 06/12/24 10:57
ALT Cancelled 06/12/24 10:57
Alkaline Phosphatase 109 U/L (38-126) 06/12/24 10:57
Alkaline Phosphatase Cancelled 06/12/24 10:57
Vital Signs and I&O:
Vital Signs
Temp Pulse Resp BP Pulse Ox
98.1 F 105 16 157/98 96
06/14/24 04:26 06/14/24 04:26 06/14/24 04:26 06/14/24 04:26 06/14/24 04:26
I&O
06/13/24 06/14/24 06/15/24
06:59 06:59 06:59
Intake Total 620 / 620 720 / 720
Output Total 500 / 500
Balance 120 / 120 720 / 720
Physical Exam
Physical Exam
General: NAD
Abdomen: normal bowel sounds, soft, no tenderness, no masses or bruits, no ascites
[2024-06-14 07:38] VITALS: BP 162/87
[2024-06-14 08:08] LABS: Hematocrit 38.7 % (37.0-47.0); Hemoglobin 13.2 g/dL (12.0-16.0); Mean Corp Hgb Conc. 34.1 g/dL (33.0-37.0); Mean Corpuscular Volume 93.7 fL (81.0-99.0); Mean Platelet Volume 9.7 fL (7.4-10.4); Platelet Count 253 10^3/uL (130-400); Red Blood Cell Count 4.13 10^6/uL (4.20-5.40); Red Cell Dist. Width 13.8 % (11.5-14.5); White Blood Cell Count 5.7 10^3/uL (4.8-10.8)
[2024-06-14 08:46] LABS: Blood Urea Nitrogen 25 mg/dl (7-17); Calcium 9.8 mg/dl (8.4-10.2); Carbon Dioxide 24 mmol/L (22-30); Chloride 101 mmol/L (98-107); Estimated Creatinine Clearance 39 ml/min; Glucose 107 mg/dl (70-99); Magnesium 1.7 mg/dl (1.6-2.3); Phosphorus 3.9 mg/dl (2.5-4.5); Potassium 3.2 mmol/L (3.5-5.1); Sodium 136 mmol/L (135-145); eGFR 51.11
[2024-06-14] MEDS: ELIQUIS 5 MG PO ×2 (10:34→20:13)
[2024-06-14] MEDS: VIBRAMYCIN 100 MG PO ×2 (10:34→20:14)
[2024-06-14] MEDS: ALDACTONE 12.5 MG PO (10:34)
[2024-06-14] MEDS: MUCINEX 600 MG PO ×2 (10:36→20:14)
[2024-06-14] MEDS: PACERONE 200 MG PO ×3 (10:36→21:21)
[2024-06-14] MEDS: LEXAPRO 20 MG PO (10:36)
[2024-06-14] MEDS: LASIX 40 MG IV (10:36)
[2024-06-14] MEDS: TOPROL XL 25 MG PO (10:36)
[2024-06-14] MEDS: PROTONIX 40 MG PO (10:36)
[2024-06-14] MEDS: COZAAR 50 MG PO (10:36)
[2024-06-14 10:58] VITALS: BP 166/91
[2024-06-14] MEDS: KCL 270 MEQ IV (11:08)
[2024-06-14] MEDS: MAGNESIUM SULFATE 50 IV (11:08)
[2024-06-14] MEDS: ROCEPHIN 1000 MG IV (12:42)
[2024-06-14] MEDS: STERILE WATER FOR INJECTION 10 ML IV (12:42)
--- NOTE | 2024-06-14 13:10 | W.PN.CARDCBS ---
Addendum entered and electronically signed by Romie Blanchard MD 06/14/24 14:03:
I saw and examined the patient.
The Director Investment Banking's note was reviewed and I agree with the note.
Comment: Briefly, 79-year-old woman past medical history of persistent atrial fibrillation presenting with acute heart failure with preserved ejection fraction
#HFpEF
Volume status appears reasonable on exam today, weight has trended down, creatinine has been relatively stable
Agree with continuing IV Lasix today, tentatively transition to oral Lasix in the next 24 hours
Spironolactone added this admission
Could also consider SGLT2 inhibitor as well
#AFib RVR
Known history of paroxysmal atrial fibrillation previously on flecainide
Has been in rapid atrial flutter/tachycardia
Flecainide stopped in favor of oral amiodarone
Tentative plan for direct-current cardioversion in a.m. to restore sinus rhythm
Continue Eliquis which patient reports she has been taking reliably
Rest per Audrey Eaton
Original Note:
Today's Communication / Plan
-
CV in AM
Cont amiodarone
Flecainide stopped this admission
Impression / Plan
-
PCP: Khanh Perez MD
Primary mule operator: Dr. Klever Merrill at [facility]
Impression:
Admitted with multifactorial dyspnea 06/12/24
PNA
Acute HFpEF
Paroxysmal atrial fibrillation
flecainide stopped due to new CHF 05/2024, new to amiodarone 05/2024
scheduled for PVI with primary cardiology group 07/2024
Chronic Eliquis OAC
Hypertension
Hyperlipidemia
Former smoker
GERD
Echo 06/12/2024: normal LV size, EF 55 to 60%, stage III diastolic dysfunction, moderate MR, mild TR, PAP 47 mmHg
Plan:
-GI note reviewed, patient was scheduled for possible upper endoscopy 06/14/24, but she ate some of her snacks she had on her bedside table. GI deferred testing.
-Patient admitted with multifactorial SIFUENTES and has been treated for CHF and rapid Afib.
-Weight is down 7 lbs overnight with Lasix 40 mg IV daily. Patient was not taking a diuretic prior to admission
-EF 55-60% by echo 06/12/24.
-Outpatient dose of Toprol XL increased to 25 mg BID
-Outpatient dose of losartan 50 mg daily was continued
-New to spironolactone 12.5 mg daily this admission
-Will ask CM to check on the cost of Farxiga 10 mg daily
-Patient with known paroxysmal A-fib, but was in SR on admission. 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 Dr. Jurado talked to patient's primary mule operator at [facility] on 06/13/24 and they agreed to make a
change including d/c'ing outpatient dose of flecainide due to new diagnosis of CHF and initiation of amiodarone 200 mg TID. Plan is for CV 06/15/24. Patient is scheduled for ablation with an EP through her primary cardiology group 07/2024
-Outpatient dose of Eliquis 5 mg BID (age 79, Cre 1.1, wt 70.48 kg) has been continued and no missed doses in the last 4 weeks
HPI: 79-year-old female with history of atrial fibrillation on Eliquis, hypertension, hyperlipidemia, former smoker, GERD, Merrill's esophagus, presents with 3 to 4-day history of shortness of breath when lying flat, worse at night. Also with lower
extremity edema. Also complains of pleuritic chest pain x 1 day, also c/o right-sided jaw and ear pain. Reports having shortness of breath like this once before but does not recall when it was or if she was on a diuretic. She reports she had
atrial fibrillation earlier this year and had a cardioversion in March 2024. She is scheduled for an ablation in July 2024 at [facility]. Patient's primary mule operator is Klever Merrill at [facility].
Progress Note - Assessment Rn
Subjective
Date of Service: June 14, 2024
She ate a cookie this morning while she was supposed to be NPO and so her GI testing was cancelled
Objective
Labs:
06/14/24 06:40
06/14/24 06:40
Labs
Hgb 13.2 g/dL (12.0-16.0) 06/14/24 06:40
Hct 38.7 % (37.0-47.0) 06/14/24 06:40
Plt Count 253 10^3/uL (130-400) 06/14/24 06:40
Sodium 136 mmol/L (135-145) 06/14/24 06:40
Potassium 3.2 mmol/L (3.5-5.1) L 06/14/24 06:40
BUN 25 mg/dl (7-17) H 06/14/24 06:40
Creatinine 1.1 mg/dL (0.6-1.0) H 06/14/24 06:40
Glucose 107 mg/dl (70-99) H 06/14/24 06:40
Troponins
06/12/24
10:57
Troponin I < 0.012
Vital Signs and I&O:
Vital Signs
Temp Pulse Resp BP Pulse Ox
98.7 F 123 18 166/91 98
06/14/24 10:58 06/14/24 10:58 06/14/24 10:58 06/14/24 10:58 06/14/24 10:58
Vital Signs
Temp Pulse Resp BP Pulse Ox
98.7 F 123 18 166/91 98
06/14/24 10:58 06/14/24 10:58 06/14/24 10:58 06/14/24 10:58 06/14/24 10:58
Intake & Output
06/12/24 06/13/24 06/14/24 06/15/24
06:59 06:59 06:59 06:59
Intake Total 620 / 620 720 / 720
Output Total 500 / 500
Balance 120 / 120 720 / 720
Physical Exam
Physical Exam
GEN: AAOx3
HEENT: MMM
LUNGS: RA. No audible wheeze
CV: Afib/tach on tele
ABD: ND
EXT: No edema B/L
NEURO: Gross non-focal
SKIN: No rash
[2024-06-14 14:58] VITALS: BP 113/73
--- NOTE | 2024-06-14 16:03 | CM ---
CM received consult for cost of Zofia/Rodoga, spoke with pharmacist from [facility]- cost $144 for one month supply. Patient seen bedside, agreeable to cost, TT to Army Officer. Patient for Cardioversion tomorrow. CM will continue to follow for all
discharge planning needs.
Plan; home no needs, previously declined VN, will offer again upon d.c.
--- NOTE | 2024-06-14 16:09 | W.PN.UPDATE ---
Update Note
Progress Note Update
Appreciate help of CM on checking cost of SGLT2 and checking back in with the patient. We will start Farxiga 10 mg daily now.
[2024-06-14] MEDS: FARXIGA 10 MG PO (17:23)
[2024-06-14 19:00] VITALS: BP 99/67
[2024-06-14] MEDS: TOPROL XL PO (20:16)
[2024-06-14 23:00] VITALS: BP 154/54
[2024-06-15] VITALS (9 sets, daily range): BP systolic 113–147; BP diastolic 51–83; PULSE 71–73; O2SAT 95–97; BMI 28.1; BMI 28.0
--- NOTE | 2024-06-15 06:48 | W.PN.GI.CBS2 ---
Today's Communication / Plan
-
See assessment and plan for details.
Assessment / Plan
-
1. Dysphagia: With some esophageal dysphagia after her cervical spine surgeries, though there was concern for possible aspiration given her pneumonia and speech evaluation that showed some retention in the esophagus. Clinically does not have much
regurgitation or oropharyngeal dysphagia symptoms, likely more related to her cervical spine surgery. At this point will await barium esophagram for clarification when able, possibly tomorrow given plan for cardioversion today, though unless
significant gross abnormality would hold on endoscopy.
2. Merrill's esophagus: Without dysplasia in the past, has followed with Dr. Davey. Continue PPI.
Subjective
Subjective
Date of Service: June 15, 2024
Patient feeling okay, no new events. States that she has no change in mild dysphagia.
Objective
Data Reviewed
Laboratory Data:
Laboratory Results
Phosphorus 3.9 mg/dl (2.5-4.5) 06/14/24 06:40
Magnesium 1.7 mg/dl (1.6-2.3) 06/14/24 06:40
Total Bilirubin 0.7 mg/dl (0.2-1.3) 06/12/24 10:57
Total Bilirubin Cancelled 06/12/24 10:57
AST 21 U/L (14-36) 06/12/24 10:57
AST Cancelled 06/12/24 10:57
ALT 12 U/L (0-35) 06/12/24 10:57
ALT Cancelled 06/12/24 10:57
Alkaline Phosphatase 109 U/L (38-126) 06/12/24 10:57
Alkaline Phosphatase Cancelled 06/12/24 10:57
Vital Signs and I&O:
Vital Signs
Temp Pulse Resp BP Pulse Ox
97.6 F 66 16 145/65 96
06/15/24 03:10 06/15/24 03:10 06/15/24 03:10 06/15/24 03:10 06/15/24 03:10
I&O
06/13/24 06/14/24 06/15/24
06:59 06:59 06:59
Intake Total 620 / 620 720 / 720 1680 / 1680
Output Total 500 / 500
Balance 120 / 120 720 / 720 1680 / 1680
Physical Exam
Physical Exam
General: NAD
Abdomen: normal bowel sounds, soft, no tenderness, no masses or bruits, no ascites
--- NOTE | 2024-06-15 07:20 | W.PN.HOSP.TC ---
Today's Communication/Plan
-
IV abx transitioned to PO
hold Lasix
monitor renal function
discharge planning
Assessment / Plan
Assessment / Plan
Physical Exam
General: no acute distress appears comfortable at this time
HEENT: NormoCephalic, Moist mucous membranes and Atraumatic
Respiratory: Clear stable respiratory status on room air
Cardiac: S1/S2 and Regular Rhythm; No Murmur or Rub
GI: Soft, Non Tender, Non Distended and Normal Bowel Sounds; No Organomegaly
Musculoskeletal: No Clubbing, No Cyanosis and No Edema
Skin: No Rash
Neuro: AO x 3 conversant coherent
Psych: Calm
79F afib Eliquis HTN HLD former smoker p/w progressive dyspnea orthopnea. Daughter notes intermittent progressive coughing with meals for the past month. CXR concerning for pna. Elevated BNP w/ hx progressive orthopnea concerning for heart
failure. BP elevated systolic 200s concerning for hypertensive urgency. Patient symptomatically improved with Lasix and continuation home Losartan. Admitted for further evaluation/treatment PNA and new onset heart failure
#dyspnea multifactorial
-COVID-negative, flu negative
-Chest x-ray suggestive right middle lobe and right lower lobe pneumonia. Mild cardiomegaly
#pneumonia
-Ceftriaxone and Doxy switched to Augmentin
-Tylenol as needed for fever and headache
#Acute HFpEF
-BNP 3100
-daily weight I/O
- Echo appreciated EF 55-60%
-Cardiology consult appreciated cont IV lasix transitioned to PO, farxiga added
RAJANI
Cr 0.9 on admission increased to 1.4 likely overdiuresis
hold lasix and monitor for now
# Hypertension urgency
-Blood pressure was elevated on arrival
-since improved following restart home antihypertensive
-Losartan Metoprolol continued
-hydralzine iv prn
-cont diuresis as per cardio
# Anemia of chronic disease
-H&H stable
#Cervical spondylosis with myelopathy
-hxt of discectomy
#Paroxysmal atrial fibrillation
-Eliquis Metoprolol continued
-Flecainide discontinued as per cardio, contraindicated d/t HF, started on Amiodarone
-Cardio eval appreciated planned for Cardioversion, canceled as patient spontaneously converted back to NSR
# Depression/anxiety
-Escitalopram continued
# GERD
#Esophageal dysphagia as noted on VSE
-PPI continued
-GI eval appreciated barium esophagram unremarkable no further GI evaluations recommended at this time
PT/OT appreciated home health
# DVT prophylaxis
-Eliquis
# CODE STATUS
-Full code
discussed with patient and patient's daughter Radha
I spent a total of 40 minutes with the patient or on the floor. More than 50% of this time involved counseling and coordination of care.
Anticipated Discharge: Within 24 hours
Subjective/Interval History
-
Date of Service: June 15, 2024
no acute distress. dysphagia persists. patient otherwise comfortable at rest stable respiratory status on room air.
Objective Data
-
Labs:
Laboratory Results
06/15/24
06:48
WBC Pending
Hgb Pending
Hct Pending
Plt Count Pending
Sodium Pending
Potassium Pending
Chloride Pending
Carbon Dioxide Pending
BUN Pending
Creatinine Pending
Glucose Pending
Calcium Pending
Vital Signs:
Vital Signs
Temp Pulse Resp BP Pulse Ox
97.6 F 66 16 145/65 96
06/15/24 03:10 06/15/24 03:10 06/15/24 03:10 06/15/24 03:10 06/15/24 03:10
I&O
06/14/24 06/15/24 06/16/24
06:59 06:59 06:59
Intake Total 720 / 720 1680 / 1680
Balance 720 / 720 1680 / 1680
[2024-06-15 07:45] LABS: Hematocrit 38.1 % (37.0-47.0); Hemoglobin 12.7 g/dL (12.0-16.0); Mean Corp Hgb Conc. 33.3 g/dL (33.0-37.0); Mean Corpuscular Hgb 31.7 pg (27.0-31.0); Mean Platelet Volume 9.6 fL (7.4-10.4); Platelet Count 277 10^3/uL (130-400); Red Blood Cell Count 4.01 10^6/uL (4.20-5.40); Red Cell Dist. Width 13.7 % (11.5-14.5); White Blood Cell Count 6.3 10^3/uL (4.8-10.8)
[2024-06-15 08:18] LABS: Blood Urea Nitrogen 40 mg/dl (7-17); Calcium 9.6 mg/dl (8.4-10.2); Carbon Dioxide 24 mmol/L (22-30); Chloride 103 mmol/L (98-107); Estimated Creatinine Clearance 32 ml/min; Glucose 107 mg/dl (70-99); Magnesium 2.4 mg/dl (1.6-2.3); Phosphorus 4.6 mg/dl (2.5-4.5); Potassium 4.2 mmol/L (3.5-5.1); Sodium 135 mmol/L (135-145); eGFR 38.27
[2024-06-15] MEDS: COZAAR 50 MG PO (09:17)
[2024-06-15] MEDS: ALDACTONE 12.5 MG PO (09:17)
[2024-06-15] MEDS: ELIQUIS 5 MG PO ×2 (09:17→20:21)
[2024-06-15] MEDS: LASIX 40 MG IV (09:18)
[2024-06-15] MEDS: FARXIGA 10 MG PO (09:18)
[2024-06-15] MEDS: LEXAPRO 20 MG PO (09:18)
[2024-06-15] MEDS: PROTONIX 40 MG PO (09:18)
[2024-06-15] MEDS: PACERONE 200 MG PO ×3 (09:18→21:30)
[2024-06-15] MEDS: MUCINEX 600 MG PO ×2 (09:18→20:21)
[2024-06-15] MEDS: VIBRAMYCIN 100 MG PO (09:19)
[2024-06-15] MEDS: TOPROL XL 25 MG PO ×2 (09:19→20:21)
[2024-06-15] MEDS: ZOFRAN 4 MG IV (10:05)
--- NOTE | 2024-06-15 12:11 | W.PN.CARDCBS ---
Addendum entered and electronically signed by Esvin Sage MD 06/15/24 13:40:
I saw and examined the patient.
The Brassiere Cup Mold Cutter's note was reviewed and I agree with the note.
Comment:
GEN: No distress, awake, Ox3
HEENT: supple, anicteric, mmm
LUNGS: CTA, no wheezes/rales
CV: Reg, S1/S2, 1/6 syst LSB, no gallop
ABD: soft, BS+, NT/ND
EXT: No edema
NEURO: Gross non-focal
SKIN: No rash
Plan:
Converted back to sinus rhythm on her own. Continue amiodarone 200 mg p.o. twice daily x 1 month then decrease to 100 mg daily. Plan is for ablation as outpatient at [facility].
Continue Toprol, losartan, spironolactone, and Farxiga
Weight is up. Will discharge on Lasix 20 mg daily and follow-up with [facility] in [place].
Creatinine at 1.4. Would repeat in 1 week as outpatient.
Okay for discharge from cardiology standpoint.
Original Note:
Today's Communication / Plan
-
-back in NSR, newly on Amiodarone, off Flec
-f/u with outpt wash rack operator and EP
Impression / Plan
-
PCP: Khanh Perez MD
Primary wash rack operator: Dr. Klever Merrill at [facility]
Impression:
Admitted with multifactorial dyspnea 06/12/24
PNA
Acute HFpEF
Paroxysmal atrial fibrillation
flecainide stopped due to new CHF 05/2024, new to amiodarone 05/2024
scheduled for PVI with primary cardiology group 07/2024
Chronic Eliquis OAC
Hypertension
Hyperlipidemia
Former smoker
GERD
Echo 06/12/2024: normal LV size, EF 55 to 60%, stage III diastolic dysfunction, moderate MR, mild TR, PAP 47 mmHg
Plan:
-Patient admitted with multifactorial SIFUENTES and has been treated for CHF and rapid Afib.
-Weight went up overnight, 5lbs, Overall down 5 lbs since admission. Patient was not taking a diuretic prior to admission, will discharge on oral diuretic
-EF 55-60% by echo 06/12/24.
-Outpatient dose of Toprol XL increased to 25 mg BID
-Outpatient dose of losartan 50 mg daily was continued
-New to spironolactone 12.5 mg daily this admission
-new to Farxiga 10 mg daily this admission
-h/o paroxysmal A-fib, was in SR on admission. 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 Dr. Jurado talked to patient's primary wash rack operator at [facility] on 06/13/24 and they agreed to make a change including
d/c'ing outpatient dose of flecainide due to new diagnosis of CHF and initiation of amiodarone 200 mg TID and do CV 06/15/24. Pt converted back to NSR today prior to CV. She is scheduled for ablation with an EP through her primary cardiology group
07/2024. She would like to call and move up the ablation
-Outpatient dose of Eliquis 5 mg BID (age 79, Cre 1.1, wt 70.48 kg) has been continued and no missed doses in the last 4 weeks
-EKG personally reviewed: A paced, underlying NSR
-GI notes reviewed, patient c/o dysphagia since most recent cervical spine surgery. Had modified barium swallow on 06/13/2024 with concern for esophageal retention and retrograde flow. Barium esophagram was scheduled for 06/14/2024, but she ate and
study cancelled. Study done this morning. There was concern for possible aspiration given her pneumonia and speech evaluation that showed some retention in the esophagus. Await barium esophagram result per GI
-remains on IV abx for pneumonia, care per primary team
HPI: 79-year-old female with history of atrial fibrillation on Eliquis, hypertension, hyperlipidemia, former smoker, GERD, Merrill's esophagus, presents with 3 to 4-day history of shortness of breath when lying flat, worse at night. Also with lower
extremity edema. Also complains of pleuritic chest pain x 1 day, also c/o right-sided jaw and ear pain. Reports having shortness of breath like this once before but does not recall when it was or if she was on a diuretic. She reports she had
atrial fibrillation earlier this year and had a cardioversion in March 2024. She is scheduled for an ablation in July 2024 at [facility]. Patient's primary wash rack operator is Klever Merrill at [facility].
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
Subjective
Date of Service: June 15, 2024
Spontaneously converted back to normal sinus rhythm prior to planned cardioversion today
Objective
Labs:
06/15/24 06:48
06/15/24 06:48
Labs
Hgb 12.7 g/dL (12.0-16.0) 06/15/24 06:48
Hct 38.1 % (37.0-47.0) 06/15/24 06:48
Plt Count 277 10^3/uL (130-400) 06/15/24 06:48
Sodium 135 mmol/L (135-145) 06/15/24 06:48
Potassium 4.2 mmol/L (3.5-5.1) D 06/15/24 06:48
BUN 40 mg/dl (7-17) H 06/15/24 06:48
Creatinine 1.4 mg/dL (0.6-1.0) H 06/15/24 06:48
Glucose 107 mg/dl (70-99) H 06/15/24 06:48
Vital Signs and I&O:
Vital Signs
Temp Pulse Resp BP Pulse Ox
98.1 F 68 18 128/60 93
06/15/24 11:00 06/15/24 11:00 06/15/24 11:00 06/15/24 11:00 06/15/24 11:00
Vital Signs
Temp Pulse Resp BP Pulse Ox
98.1 F 68 18 128/60 93
06/15/24 11:00 06/15/24 11:00 06/15/24 11:00 06/15/24 11:00 06/15/24 11:00
Intake & Output
06/13/24 06/14/24 06/15/24 06/16/24
06:59 06:59 06:59 06:59
Intake Total 620 / 620 720 / 720 1680 / 1680
Output Total 500 / 500
Balance 120 / 120 720 / 720 1680 / 1680
Physical Exam
Physical Exam
GEN: No distress, awake, Ox3
HEENT: supple, anicteric, mmm
LUNGS: CTA, no wheezes/rales
CV: Reg, S1/S2, 1/6 systolic murmur LSB
ABD: soft, BS+, NT/ND
EXT: No edema
NEURO: Gross non-focal
SKIN: No rash
[2024-06-15] MEDS: ROCEPHIN 1000 MG IV (12:13)
[2024-06-15] MEDS: STERILE WATER FOR INJECTION 10 ML IV (12:14)
--- NOTE | 2024-06-15 14:29 | W.PN.UPDATE ---
Update Note
Progress Note Update
Esophagram noted, mild reflux though otherwise was unremarkable. Esophageal peristalsis and motility were normal, no obvious stricture seen. Will hold on further GI evaluation for now. Will sign off for now, please call back with any further
questions.
--- NOTE | 2024-06-15 15:06 | W.PN.UPDATE ---
Update Note
Progress Note Update
spoke with daughter Radha over phone, reviewed that CV not needed today as she spontaneously converted to NSR. Reviewed changes made to cardiac meds including change from Flecainide to Amiodarone, addition of Spironolactone and Farxiga for HF,
increase in Toprol to 50 mg daily, and recommendation that she start oral diuretic at discharge. Advised f/u with primary cardiology coordinator within one week of discharge.
[2024-06-15] MEDS: AUGMENTIN 875 MG/125 MG 1 TABLET PO (20:21)
[2024-06-16 03:48] VITALS: BP 127/62
[2024-06-16 06:00] VITALS: BMI 27.6
[2024-06-16 07:00] VITALS: BP 129/64
--- NOTE | 2024-06-16 07:18 | W.PN.HOSP.TC ---
Today's Communication/Plan
-
hold diuretic aldactone
short course IVF hydration
daily weight I/O
cont abx
monitor renal function
Possible discharge tomorrow if kidney function improves
Assessment / Plan
Assessment / Plan
Physical Exam
General: no acute distress appears comfortable at this time
HEENT: NormoCephalic, Moist mucous membranes and Atraumatic
Respiratory: Clear stable respiratory status on room air
Cardiac: S1/S2 and Regular Rhythm; No Murmur or Rub
GI: Soft, Non Tender, Non Distended and Normal Bowel Sounds; No Organomegaly
Musculoskeletal: No Clubbing, No Cyanosis and No Edema
Skin: No Rash
Neuro: AO x 3 conversant coherent
Psych: Calm
79F afib Eliquis HTN HLD former smoker p/w progressive dyspnea orthopnea. Daughter notes intermittent progressive coughing with meals for the past month. CXR concerning for pna. Elevated BNP w/ hx progressive orthopnea concerning for heart
failure. BP elevated systolic 200s concerning for hypertensive urgency. Patient symptomatically improved with Lasix and continuation home Losartan. Admitted for further evaluation/treatment PNA and new onset heart failure
#dyspnea multifactorial
-COVID-negative, flu negative
-Chest x-ray suggestive right middle lobe and right lower lobe pneumonia. Mild cardiomegaly
#pneumonia
-Ceftriaxone and Doxy switched to Augmentin
-Tylenol as needed for fever and headache
#Acute HFpEF
-BNP 3100
-daily weight I/O
- Echo appreciated EF 55-60%
-Cardiology consult appreciated Farxiga and spironolactone added
-Diuresis on hold d/t RAJANI
RAJANI
Cr 0.9 on admission increased to 1.7 likely overdiuresis
hold Lasix/spironolactone, short course IVF gentle hydration given
# Hypertension urgency
-Blood pressure was elevated on arrival
-since improved following restart home antihypertensive
-Losartan Metoprolol continued
-Aldactone on hold as above
-hydralzine iv prn
# Anemia of chronic disease
-H&H stable
#Cervical spondylosis with myelopathy
-hxt of discectomy
#Paroxysmal atrial fibrillation
-Eliquis Metoprolol continued
-Flecainide discontinued as per cardio, contraindicated d/t HF, started on Amiodarone
-Cardio eval appreciated planned for Cardioversion, canceled as patient spontaneously converted back to NSR
# Depression/anxiety
-Escitalopram continued
# GERD
#Esophageal dysphagia as noted on VSE
-PPI continued
-GI eval appreciated barium esophagram unremarkable no further GI evaluations recommended at this time
PT/OT appreciated home health
# DVT prophylaxis
-Eliquis
# CODE STATUS
-Full code
discussed with patient and patient's daughter Radha
I spent a total of 40 minutes with the patient or on the floor. More than 50% of this time involved counseling and coordination of care.
Anticipated Discharge: Within 24 hours
Subjective/Interval History
-
Date of Service: June 16, 2024
no acute distress. Overall reports feeling well.
Objective Data
-
Labs:
Laboratory Results
06/16/24
06:00
WBC Pending
Hgb Pending
Hct Pending
Plt Count Pending
Sodium Pending
Potassium Pending
Chloride Pending
Carbon Dioxide Pending
BUN Pending
Creatinine Pending
Glucose Pending
Calcium Pending
Vital Signs:
Vital Signs
Temp Pulse Resp BP Pulse Ox
98.0 F 62 18 127/62 97
06/16/24 03:48 06/16/24 03:48 06/16/24 03:48 06/16/24 03:48 06/16/24 03:48
I&O
06/15/24 06/16/24 06/17/24
06:59 06:59 06:59
Intake Total 1680 / 1680 1180 / 1180
Balance 1680 / 1680 1180 / 1180
[2024-06-16] MEDS: AUGMENTIN 875 MG/125 MG 1 TABLET PO ×2 (08:12→21:09)
[2024-06-16] MEDS: MUCINEX 600 MG PO ×2 (08:13→21:09)
[2024-06-16] MEDS: ELIQUIS 5 MG PO ×2 (08:13→21:09)
[2024-06-16] MEDS: ALDACTONE 12.5 MG PO (08:13)
[2024-06-16] MEDS: FARXIGA 10 MG PO (08:14)
[2024-06-16] MEDS: LEXAPRO 20 MG PO (08:14)
[2024-06-16] MEDS: PROTONIX 40 MG PO (08:14)
[2024-06-16] MEDS: PACERONE 200 MG PO ×3 (08:14→21:08)
[2024-06-16] MEDS: COZAAR 50 MG PO (08:15)
[2024-06-16] MEDS: TOPROL XL 25 MG PO (08:15)
[2024-06-16 08:43] LABS: Hematocrit 39.3 % (37.0-47.0); Hemoglobin 12.9 g/dL (12.0-16.0); Mean Corp Hgb Conc. 32.8 g/dL (33.0-37.0); Mean Corpuscular Hgb 31.6 pg (27.0-31.0); Mean Corpuscular Volume 96.3 fL (81.0-99.0); Mean Platelet Volume 9.5 fL (7.4-10.4); Platelet Count 311 10^3/uL (130-400); Red Blood Cell Count 4.08 10^6/uL (4.20-5.40); Red Cell Dist. Width 13.5 % (11.5-14.5); White Blood Cell Count 6.2 10^3/uL (4.8-10.8)
[2024-06-16 09:11] LABS: Blood Urea Nitrogen 43 mg/dl (7-17); Calcium 9.5 mg/dl (8.4-10.2); Carbon Dioxide 27 mmol/L (22-30); Chloride 99 mmol/L (98-107); Estimated Creatinine Clearance 26 ml/min; Glucose 100 mg/dl (70-99); Magnesium 2.3 mg/dl (1.6-2.3); Potassium 4.2 mmol/L (3.5-5.1); Sodium 137 mmol/L (135-145); eGFR 30.32
[2024-06-16 11:00] VITALS: BP 126/57
[2024-06-16] MEDS: NSS 500 IV ×2 (11:33→18:17)
--- NOTE | 2024-06-16 14:15 | W.PN.CARDCBS ---
Addendum entered and electronically signed by Esvin Sage MD 06/16/24 16:29:
I saw and examined the patient.
The [employer] Manufacturer's note was reviewed and I agree with the note.
Comment:
GEN: No distress, awake, Ox3
HEENT: supple, anicteric, mmm
LUNGS: CTA, no wheezes/rales
CV: Reg, S1/S2, 1/6 syst LSB, no gallop
ABD: soft, BS+, NT/ND
EXT: No edema
NEURO: Gross non-focal
SKIN: No rash
Plan:
Remains in sinus rhythm. Continue amiodarone. Would discharge on 200 mg p.o. twice daily for 1 month then 200 mg daily. Awaiting ablation from [facility].
Creatinine up to 1.7. Continue to hold diuretics.
Continue Toprol, and Cozaar. Spironolactone currently on hold.
Continue Farxiga. Stable for discharge when creatinine is stable.
Original Note:
Today's Communication / Plan
-
maintaining NSR
change Amio to 200 mg BID at time of discharge
diuretics on hold due to bump in creatinine
Impression / Plan
-
PCP: Khanh Perez MD
Primary can cleaner: Dr. Klever Merrill at [facility]
Impression:
Admitted with multifactorial dyspnea 06/12/24
PNA
Acute HFpEF
Paroxysmal atrial fibrillation
flecainide stopped due to new CHF 05/2024, new to amiodarone 05/2024
scheduled for PVI with primary cardiology group 07/2024
Chronic Eliquis OAC
Hypertension
Hyperlipidemia
Former smoker
GERD
Echo 06/12/2024: normal LV size, EF 55 to 60%, stage III diastolic dysfunction, moderate MR, mild TR, PAP 47 mmHg
Plan:
-Patient admitted with multifactorial SIFUENTES and has been treated for CHF and rapid Afib.
-Weight down 2 lbs overnight to 158 lbs. Wt down 7 lbs since admit.
-BUN/creat trending up 1.1-1.4-1.7 today (06/16). Lasix now on hold, last dose 06/15. Patient was not taking a diuretic prior to admission. Consider starting oral diuretic as long as creatinine improves. Got 500cc NSS today.
-she is new to both Spironolactone and Farxiga - could be contributing to renal dysfxn.
-EF 55-60% by echo 06/12/24.
-Outpatient dose of Toprol XL increased to 25 mg BID
-Outpatient dose of losartan 50 mg daily was continued
-New to spironolactone 12.5 mg daily this admission
-new to Farxiga 10 mg daily this admission
-check BMP 1 week after discharge
-h/o paroxysmal A-fib, was in SR on admission. 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 Dr. Jurado talked to patient's primary can cleaner at [facility] on 06/13/24 and they agreed to make a change including
d/c'ing outpatient dose of flecainide due to new diagnosis of CHF and initiation of amiodarone 200 mg TID and do CV 06/15/24. Pt converted back to NSR prior to CV. She is scheduled for ablation with an EP through her primary cardiology group
07/2024. She would like to call and move up the ablation
-decrease Amio to 200 mg BID at time of discharge
-has maintained NSR on telemetry. telem personally reviewed: NSR 60s.
-Outpatient dose of Eliquis 5 mg BID (age 79, Cre 1.1, wt 70.48 kg) has been continued and no missed doses
-GI notes reviewed, patient c/o dysphagia since most recent cervical spine surgery. Had modified barium swallow on 06/13/2024 with concern for esophageal retention and retrograde flow. Barium esophagram 06/15/2024: mild reflux. There was concern
for possible aspiration given her pneumonia and speech evaluation that showed some retention in the esophagus.
-pneumonia, care per primary team. transitioned to oral ABX
HPI: 79-year-old female with history of atrial fibrillation on Eliquis, hypertension, hyperlipidemia, former smoker, GERD, Merrill's esophagus, presents with 3 to 4-day history of shortness of breath when lying flat, worse at night. Also with lower
extremity edema. Also complains of pleuritic chest pain x 1 day, also c/o right-sided jaw and ear pain. Reports having shortness of breath like this once before but does not recall when it was or if she was on a diuretic. She reports she had
atrial fibrillation earlier this year and had a cardioversion in March 2024. She is scheduled for an ablation in July 2024 at [facility]. Patient's primary can cleaner is Klever Merrill at [facility].
Progress Note - Development Eng
Subjective
Date of Service: June 16, 2024
-creat 1.7, Lasix on hold
-feels well, no SOB, CP.
Objective
Labs:
06/16/24 08:01
06/16/24 08:01
Labs
Hgb 12.9 g/dL (12.0-16.0) 06/16/24 08:01
Hct 39.3 % (37.0-47.0) 06/16/24 08:01
Plt Count 311 10^3/uL (130-400) 06/16/24 08:01
Sodium 137 mmol/L (135-145) 06/16/24 08:01
Potassium 4.2 mmol/L (3.5-5.1) 06/16/24 08:01
BUN 43 mg/dl (7-17) H 06/16/24 08:01
Creatinine 1.7 mg/dL (0.6-1.0) H 06/16/24 08:01
Glucose 100 mg/dl (70-99) H 06/16/24 08:01
Vital Signs and I&O:
Vital Signs
Temp Pulse Resp BP Pulse Ox
97.7 F 62 18 126/57 97
06/16/24 11:00 06/16/24 11:00 06/16/24 11:00 06/16/24 11:00 06/16/24 11:00
Vital Signs
Temp Pulse Resp BP Pulse Ox
97.7 F 62 18 126/57 97
06/16/24 11:00 06/16/24 11:00 06/16/24 11:00 06/16/24 11:00 06/16/24 11:00
Intake & Output
06/14/24 06/15/24 06/16/24 06/17/24
06:59 06:59 06:59 06:59
Intake Total 720 / 720 1680 / 1680 1180 / 1180
Balance 720 / 720 1680 / 1680 1180 / 1180
Physical Exam
Physical Exam
GEN: No distress, awake, Ox3
HEENT: supple, anicteric, mmm
LUNGS: CTA, no wheezes/rales
CV: Reg, S1/S2, , no murmur
ABD: soft, BS+, NT/ND
EXT: No edema
NEURO: Gross non-focal
SKIN: No rash
[2024-06-16 15:00] VITALS: BP 122/49
--- NOTE | 2024-06-16 16:27 | CM ---
CM reviewed chart, patient seen bedside, provided with [employer] coupon. Patient denies needs at this time. IMM verbally reviewed, provided with copy, placed in chart. CM will continue to follow for all discharge planning needs.
Plan; home no needs, declining VN
[2024-06-16 20:37] VITALS: BP 155/83
[2024-06-16] MEDS: TOPROL XL PO (21:09)
[2024-06-16 23:42] VITALS: BP 143/61
[2024-06-17 03:21] VITALS: BP 122/50
[2024-06-17 05:27] VITALS: BMI 28.2
[2024-06-17 07:00] VITALS: BP 137/59
--- NOTE | 2024-06-17 07:07 | W.PN.HOSP.TC ---
Addendum entered and electronically signed by Remington Shi MD 06/17/24 15:03:
Due to Bradycardia, Home Metoprolol was continued at once a day dosing, as was prior to hospitalization, instead of twice a day
Due to RAJANI, though resolving, spironolactone was not continued on discharge.
Original Note:
Today's Communication/Plan
-
discharge
Assessment / Plan
Assessment / Plan
Physical Exam
General: no acute distress appears comfortable at this time
HEENT: NormoCephalic, Moist mucous membranes and Atraumatic
Respiratory: Clear stable respiratory status on room air
Cardiac: S1/S2 and Regular Rhythm; No Murmur or Rub
GI: Soft, Non Tender, Non Distended and Normal Bowel Sounds; No Organomegaly
Musculoskeletal: No Clubbing, No Cyanosis and No Edema
Skin: No Rash
Neuro: AO x 3 conversant coherent
Psych: Calm
79F afib Eliquis HTN HLD former smoker p/w progressive dyspnea orthopnea. Daughter notes intermittent progressive coughing with meals for the past month. CXR concerning for pna. Elevated BNP w/ hx progressive orthopnea concerning for heart
failure. BP elevated systolic 200s concerning for hypertensive urgency. Patient symptomatically improved with Lasix and continuation home Losartan. Admitted for further evaluation/treatment PNA and new onset heart failure
#dyspnea multifactorial
-COVID-negative, flu negative
-Chest x-ray suggestive right middle lobe and right lower lobe pneumonia. Mild cardiomegaly
#pneumonia
-Ceftriaxone and Doxy switched to Augmentin
-Tylenol as needed for fever and headache
#Acute HFpEF
-BNP 3100
-daily weight I/O
- Echo appreciated EF 55-60%
-Cardiology consult appreciated Farxiga added
-spironolactone added but later discontinued d/t RAJANI
-Diuresis on hold d/t RAJANI since improved, discharging on Lasix PO 20 mg daily
RAJANI
Cr 0.9 on admission increased to 1.7 likely overdiuresis
Cr since improved with hold lasix, d/c aldactone, and short course IV hydration
# Hypertension urgency
-Blood pressure was elevated on arrival
-since improved following restart home antihypertensive
-Losartan Metoprolol continued
-hydralzine iv prn
# Anemia of chronic disease
-H&H stable
#Cervical spondylosis with myelopathy
-hxt of discectomy
#Paroxysmal atrial fibrillation
-Eliquis Metoprolol continued
-Flecainide discontinued as per cardio, contraindicated d/t HF, started on Amiodarone
-Cardio eval appreciated planned for Cardioversion, canceled as patient spontaneously converted back to NSR
# Depression/anxiety
-Escitalopram continued
# GERD
#Esophageal dysphagia as noted on VSE
-PPI continued
-GI eval appreciated barium esophagram unremarkable no further GI evaluations recommended at this time
PT/OT appreciated home health (patient however refusing)
# DVT prophylaxis
-Eliquis
# CODE STATUS
-Full code
Medically stable for discharge home with outpatient follow up recommendations.
discussed with patient and patient's daughter Radha
I spent a total of 40 minutes with the patient or on the floor. More than 50% of this time involved counseling and coordination of care.
Anticipated Discharge: Today
Subjective/Interval History
-
Date of Service: June 17, 2024
No acute distress sitting up comfortably in bed. Overall reports feeling well. Denies new acute issues. Eager to go home.
Objective Data
-
Labs:
Laboratory Results
06/17/24
05:58
WBC Pending
Hgb Pending
Hct Pending
Plt Count Pending
Sodium Pending
Potassium Pending
Chloride Pending
Carbon Dioxide Pending
BUN Pending
Creatinine Pending
Glucose Pending
Calcium Pending
Vital Signs:
Vital Signs
Temp Pulse Resp BP Pulse Ox
97.4 F 56 18 122/50 98
06/17/24 03:21 06/17/24 03:21 06/17/24 03:21 06/17/24 03:21 06/17/24 03:21
I&O
06/16/24 06/17/24 06/18/24
06:59 06:59 06:59
Intake Total 1180 / 1180 1879
Balance 1180 / 1180 1879
[2024-06-17 07:14] LABS: Hematocrit 35.7 % (37.0-47.0); Hemoglobin 11.8 g/dL (12.0-16.0); Mean Corp Hgb Conc. 33.1 g/dL (33.0-37.0); Mean Corpuscular Hgb 31.9 pg (27.0-31.0); Mean Corpuscular Volume 96.5 fL (81.0-99.0); Mean Platelet Volume 9.6 fL (7.4-10.4); Platelet Count 283 10^3/uL (130-400); Red Cell Dist. Width 13.2 % (11.5-14.5); White Blood Cell Count 6.7 10^3/uL (4.8-10.8)
[2024-06-17 08:01] LABS: Blood Urea Nitrogen 39 mg/dl (7-17); Carbon Dioxide 25 mmol/L (22-30); Chloride 104 mmol/L (98-107); Estimated Creatinine Clearance 32 ml/min; Glucose 80 mg/dl (70-99); Magnesium 2.2 mg/dl (1.6-2.3); Phosphorus 4.2 mg/dl (2.5-4.5); Potassium 4.3 mmol/L (3.5-5.1); Sodium 137 mmol/L (135-145); eGFR 38.27
[2024-06-17] MEDS: AUGMENTIN 875 MG/125 MG 1 TABLET PO (08:24)
[2024-06-17] MEDS: MUCINEX 600 MG PO (08:25)
[2024-06-17] MEDS: ELIQUIS 5 MG PO (08:25)
[2024-06-17] MEDS: FARXIGA 10 MG PO (08:26)
[2024-06-17] MEDS: PROTONIX 40 MG PO (08:26)
[2024-06-17] MEDS: TOPROL XL PO (08:27)
[2024-06-17] MEDS: LEXAPRO 20 MG PO (08:27)
--- NOTE | 2024-06-17 09:02 | W.PN.CARDCBS ---
Today's Communication / Plan
-
Remains in sinus rhythm. Continue amiodarone. Would discharge on 200 mg p.o. twice daily for 1 month then 200 mg daily. Awaiting ablation from [facility].
Creatinine up to 1.7. Continue to hold diuretics.
Continue Toprol, and Cozaar. Spironolactone currently on hold.
Continue Farxiga. Stable for discharge when creatinine is stable.
Please recall if needed
Impression / Plan
-
.
PCP: Khanh Perez MD
Primary campaign management senior manager: Dr. Klever Merrill at [facility]
Impression:
Admitted with multifactorial dyspnea 06/12/24
PNA
Acute HFpEF
Paroxysmal atrial fibrillation
flecainide stopped due to new CHF 05/2024, new to amiodarone 05/2024
scheduled for PVI with primary cardiology group 07/2024
Chronic Eliquis OAC
Hypertension
Hyperlipidemia
Former smoker
GERD
Echo 06/12/2024: normal LV size, EF 55 to 60%, stage III diastolic dysfunction, moderate MR, mild TR, PAP 47 mmHg
Plan:
-Patient admitted with multifactorial SIFUENTES and has been treated for CHF and rapid Afib.
Wt up slightly, cr improving. Diuretics held.
If cr continues to improve, consider lasix 20 mg daily. Remain off Aldactone.
Monitor daily wts as outpt
BMP 1 week.
Remains sinus rhythm. Continue Amiodarone, would discharge on 200 mg p.o. twice daily for 1 month then 200 mg daily.
Awaiting ablation from [facility]. Cont Eliquis.
Continue Toprol, and Cozaar. Continue Farxiga.
Stable for discharge when creatinine is stable.
Care of PNA as per primary team.
Please recall if needed
Additional hx: -h/o paroxysmal A-fib, was in SR on admission. 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 Dr. Jurado talked to patient's primary campaign management senior manager at [facility] on 06/13/24 and they agreed to make a change
including d/c'ing outpatient dose of flecainide due to new diagnosis of CHF and initiation of amiodarone 200 mg TID and do CV 06/15/24. Pt converted back to NSR prior to CV. She is scheduled for ablation with an EP through her primary cardiology
group 07/2024.
-GI notes reviewed, patient c/o dysphagia since most recent cervical spine surgery. Had modified barium swallow on 06/13/2024 with concern for esophageal retention and retrograde flow. Barium esophagram 06/15/2024: mild reflux. There was concern
for possible aspiration given her pneumonia and speech evaluation that showed some retention in the esophagus.
HPI: 79-year-old female with history of atrial fibrillation on Eliquis, hypertension, hyperlipidemia, former smoker, GERD, Merrill's esophagus, presents with 3 to 4-day history of shortness of breath when lying flat, worse at night. Also with lower
extremity edema. Also complains of pleuritic chest pain x 1 day, also c/o right-sided jaw and ear pain. Reports having shortness of breath like this once before but does not recall when it was or if she was on a diuretic. She reports she had
atrial fibrillation earlier this year and had a cardioversion in March 2024. She is scheduled for an ablation in July 2024 at [facility]. Patient's primary campaign management senior manager is Klever Merrill at [facility].
Progress Note - Radiator Mechanic
Subjective
Date of Service: June 17, 2024
Pt seen and examined. No complaints. No chest pain or shortness of breath.
Objective
Labs:
06/17/24 05:58
06/17/24 05:58
Labs
Hgb 11.8 g/dL (12.0-16.0) L 06/17/24 05:58
Hct 35.7 % (37.0-47.0) L 06/17/24 05:58
Plt Count 283 10^3/uL (130-400) 06/17/24 05:58
Sodium 137 mmol/L (135-145) 06/17/24 05:58
Potassium 4.3 mmol/L (3.5-5.1) 06/17/24 05:58
BUN 39 mg/dl (7-17) H 06/17/24 05:58
Creatinine 1.4 mg/dL (0.6-1.0) H 06/17/24 05:58
Glucose 80 mg/dl (70-99) 06/17/24 05:58
Vital Signs and I&O:
Vital Signs
Temp Pulse Resp BP Pulse Ox
97.7 F 51 16 137/59 96
06/17/24 07:00 06/17/24 08:27 06/17/24 07:00 06/17/24 07:00 06/17/24 07:00
Vital Signs
Temp Pulse Resp BP Pulse Ox
97.7 F 51 16 137/59 96
06/17/24 07:00 06/17/24 08:27 06/17/24 07:00 06/17/24 07:00 06/17/24 07:00
Intake & Output
06/15/24 06/16/24 06/17/24 06/18/24
06:59 06:59 06:59 06:59
Intake Total 1680 / 1680 1180 / 1180 1879
Balance 1680 / 1680 1180 / 1180 1879
Physical Exam
Physical Exam
General: No acute distress, AAOX3
Neck: Negative JVD
Heart: Regular, Negative S3 positive S1/S2, Negative S4, No murmur
Lungs: CTA b/l, negative wheezes/rales/rhonchi
Abd: Positive BS, NT/ND, neg rebound/rigidity/guarding
Ext: Negative cyanosis/clubbing/edema
Neuro: nonfocal
[2024-06-17] MEDS: PACERONE PO (09:09)
[2024-06-17] MEDS: COZAAR 50 MG PO (09:09)
[2024-06-17 11:00] VITALS: BP 128/51
--- NOTE | 2024-06-17 15:03 | CM ---
Met with patient at bedside; explained PT's recommendation for home therapy; declined home health services
Patient reported that daughter will transport home
Plan: discharge to home; no services
== END 2024-06-17 15:48 | disposition home or self-care (01) | DRG 193 ==
LOC: 4 WEST ACU 14:02
PROVIDERS: Physician Assistant; Registered Nurse; ADMITTING PHYSICIAN Internal Medicine; CONSULT PHYSICIAN Internal Medicine Cardiovascular Disease; CONSULT PHYSICIAN Internal Medicine Gastroenterology; EMERGENCY PHYSICIAN Student in an Organized Health Care Education/Training Program; FAMILY PHYSICIAN Internal Medicine
DX: J18.9 Pneumonia, unspecified organism (principal); I50.31 Acute diastolic (congestive) heart failure; I16.1 Hypertensive emergency; M47.12 Other spondylosis with myelopathy, cervical region; N17.9 Acute kidney failure, unspecified; I11.0 Hypertensive heart disease with heart failure; Z11.52 Encounter for screening for COVID-19; I16.0 Hypertensive urgency; I48.0 Paroxysmal atrial fibrillation; Z79.01 Long term (current) use of anticoagulants; Z87.891 Personal history of nicotine dependence; D63.8 Anemia in other chronic diseases classified elsewhere; F32.A Depression, unspecified; F41.9 Anxiety disorder, unspecified; K21.9 Gastro-esophageal reflux disease without esophagitis; E78.5 Hyperlipidemia, unspecified
CPT/HCPCS: 71046; 74221; 74230; 80048; 80053; 80061; 83735; 83880; 84100; 84443; 84484; 85025; 85027; 87070; 87205; 87502; 87811; 92610; 92611; 93005; 93306; 96374; 96375; 97116; 97162; 97166; 97530; 97535; 99285

== ENCOUNTER 2024-10-24 12:54 | Outpatient (RCR) | payer OTHER, SELFPAY | END 2024-10-24 23:59 | disposition home or self-care (01) | LOC: RPT 12:54 | PROVIDERS: ATTENDING PHYSICIAN Orthopaedic Surgery; FAMILY PHYSICIAN Internal Medicine | DX: M75.102 Unspecified rotator cuff tear or rupture of left shoulder, not specified as traumatic (principal); W19.XXXD Unspecified fall, subsequent encounter; M43.22 Fusion of spine, cervical region; Z73.6 Limitation of activities due to disability; R26.89 Other abnormalities of gait and mobility | CPT/HCPCS: 97110; 97163 ==

== ENCOUNTER 2024-11-20 13:04 | Outpatient (RCR) | payer OTHER, SELFPAY | END 2024-11-20 23:59 | disposition home or self-care (01) | LOC: RPT 13:04 | PROVIDERS: ATTENDING PHYSICIAN Orthopaedic Surgery; FAMILY PHYSICIAN Internal Medicine | DX: M75.102 Unspecified rotator cuff tear or rupture of left shoulder, not specified as traumatic (principal); Z73.6 Limitation of activities due to disability; R26.89 Other abnormalities of gait and mobility; W19.XXXD Unspecified fall, subsequent encounter; M43.22 Fusion of spine, cervical region; R29.6 Repeated falls | CPT/HCPCS: 97010; 97110; 97164; 97530 ==

== ENCOUNTER 2024-12-18 13:08 | Outpatient (RCR) | payer OTHER, SELFPAY | END 2024-12-18 23:59 | disposition home or self-care (01) | LOC: RPT 13:08 | PROVIDERS: ATTENDING PHYSICIAN Orthopaedic Surgery; FAMILY PHYSICIAN Internal Medicine | DX: M75.102 Unspecified rotator cuff tear or rupture of left shoulder, not specified as traumatic (principal); Z73.6 Limitation of activities due to disability; R26.89 Other abnormalities of gait and mobility; W19.XXXD Unspecified fall, subsequent encounter; M43.22 Fusion of spine, cervical region; R29.6 Repeated falls | CPT/HCPCS: 97110; 97530 ==